=== PATIENT | male | born 1945 | race African-American/Black ===

== ENCOUNTER 2017-12-27 14:44 | Inpatient (IN) ==
--- NOTE | 2017-12-27 17:14 | XR ---
EXAM DATE: 12/27/2017 5:03 PM EDT AGE/SEX: 72 years / Male INDICATIONS: Left foot pain and inflammation, infection in 2nd digit. CLINICAL DATA: This is the patient's initial encounter. Patient reports that signs and symptoms have been present for 4 - 6 days and indicates a pain score of 10/10. MEDICAL/SURGICAL HISTORY: None. . 1st digit amputation. COMPARISON: [facility], XR FOOT (MIN 3 VIEWS), LEFT, 12/14/2015. . FINDINGS: There has been interval transmetatarsal amputation of the first toe and resection of the third toe fr om the distal aspect of the proximal phalanx. The second toe PIP joint is dislocated and there is per meative destructive change involving the middle and distal phalanges as well as erosive change involv ing the second metatarsal head. There is moderate diffuse osteoporosis/osteopenia. Prominent vascular calcifications are noted in the soft tissues. CONCLUSION: Dislocated second toe metatarsophalangeal joint and destructive bony changes involving the second toe phalanges consistent with osteomyelitis. Electronically signed by: Ramana Brush MD 12/27/2017 5:13 PM EDT
--- NOTE | 2017-12-27 17:35 | ED ---
HPI General Chief complaint: Skin/Abscess/Foreign Body Stated complaint: Left Foot Complaint Time Seen by Provider: 12/27/17 16:13 Source: patient Mode of arrival: ambulatory Limitations: no limitations History of Present Illness HPI narrative: 72-year-old male presents to the emergency department with complaint of an open wound to his left foot that has been there since February 2017 after a few of his toes were amputated. Wound care addresses the wound and he was told to come to the ER for evaluation for possible infection to the wound. There is also concern of a palpable bone from one of the small toes that was not amputated. He says he has been taking antibiotics for 1 week but does not know the name of the antibiotic. Denies fever, vomiting. Is complaining of increased pain 1 week. Reports numbness and tingling to the foot. Denies history of diabetes. Says he has bad circulation. Rates pain 10/ 10. Constantly aggravated. No known relieving factors. No treatments tried. No known allergies. Has a primary care provider and does not know the name. Denies significant past medical history. Has no other medical complaints. No other modifying factors or associated signs and symptoms. Related Data Home Medications Medication Instructions Recorded Confirmed Unable to Obtain Home Meds 12/27/17 12/27/17 Allergies Allergy/AdvReac Type Severity Reaction Status Date / Time aspirin AdvReac Mild UPSET Verified 12/27/17 16:45 STOMACH Review of Systems ROS: all other systems reviewed are negative PMFSH History History Provided By: Patient Family History Family History Other Family history normal Social History Social History Substance History: No History of Abuse Second Hand Smoke Exposure: Yes Smoking Status: Current every day smoker Tobacco Type: Cigarettes How Often Do You Have a Drink Containing Alcohol: 4 or more times a week Recent Travel in [facility] within the Last 8 Weeks: No Recent Out of Country Travel within the Last 8 Weeks: No Exam Narrative Exam Narrative: GENERAL: Well-nourished, well-developed elderly, black male patient, in no acute distress SKIN: Warm and dry. Left foot with ulcer type wound to the first, second metatarsal region; there is a palpable bony protrusion to the present toe; no purulent drainage, erythema, edema noted to the foot; sensory intact; 2+ pedal pulse. No lymphangitis. Left lower extremity is supple and non-tense and without erythema or edema. HEAD: Atraumatic. Normocephalic. EYES: Pupils equal and round. No scleral icterus. No injection or drainage. ENT: Mucosa pink and moist. Airway patent. NECK: Trachea midline. CARDIOVASCULAR: Regular rate. RESPIRATORY: No accessory muscle use. GASTROINTESTINAL: Flat. MUSCULOSKELETAL: No obvious deformities. No clubbing. No cyanosis. No edema. NEUROLOGICAL: Awake and alert. Oriented 3. No obvious cranial nerve deficits. Motor grossly within normal limits. Normal speech. PSYCHIATRIC: Appropriate mood and affect; insight and judgment normal. Course Initial Documented Vital Signs Temperature 98.0 F 12/27/17 14:46 Pulse Rate 66 12/27/17 14:46 Respiratory Rate 18 12/27/17 14:46 Blood Pressure 161/72 H 12/27/17 14:46 Pulse Oximetry 100 12/27/17 14:46 Last Documented Vital Signs Temperature 97.6 F 12/28/17 12:00 Pulse Rate 55 L 12/28/17 12:00 Respiratory Rate 18 12/28/17 12:00 Blood Pressure 120/64 12/28/17 12:00 Pulse Oximetry 99 12/28/17 12:00 Medical Decision Making MDM Narrative Medical decision making narrative: 72-year-old male with chronic wound to his left foot. He was sent in by wound care for evaluation for possible infection. CBC, CMP, left foot x-ray, Paden ordered. 174: Left foot x-ray concludes; dislocated second toe metatarsophalangeal joint and destructive bony changes involving the second toe phalanges consistent with osteomyelitis. Vancomycin, Zosyn ordered. Patient will be admitted for further treatment and evaluation. Labs still pending at this time. 183: CBC unremarkable. Potassium 6.0. BUN 28, creatinine 2.13. BUN is consistent with past levels in October 2015. Creatinine has elevated. Kayexalate and EKG ordered. Call placed for patient admission. Report given to Dr. Bullard for patient admission. Medical Screen Exam Complete: Yes Emergency Medical Condition: Yes Differential Diagnosis Differential Diagnosis: Wound infection, osteomyelitis, medical clearance Lab Data Result diagrams: 12/28/17 08:19 12/28/17 08:19 Lab Results 12/27/17 12/27/17 12/27/17 Range/Units 17:55 17:55 17:55 WBC 4.6 (4.0-11.0) th/mm3 RBC 3.29 L (4.50-5.90) mil/mm3 Hgb 11.7 L (13.0-17.0) gm/dL Hct 35.0 L (39.0-51.0) % MCV 106.5 H (80.0-100.0) fL MCH 35.6 H (27.0-34.0) pg MCHC 33.5 (32.0-36.0) % RDW 14.4 (11.6-17.2) % Plt Count 158 (150-450) th/mm3 MPV 8.9 (7.0-11.0) fL Neut % (Auto) 54.7 (16.0-70.0) % Lymph % (Auto) 29.8 (9.0-44.0) % [place] % (Auto) 11.4 H (0.0-8.0) % Eos % (Auto) 2.9 (0.0-4.0) % Baso % (Auto) 1.2 (0.0-2.0) % Neut # (Auto) 2.5 (1.8-7.7) th/mm3 Lymph # (Auto) 1.4 (1.0-4.8) th/mm3 [place] # (Auto) 0.5 (0.0-0.9) th/mm3 Eos # (Auto) 0.1 (0.0-0.4) th/mm3 Baso # (Auto) 0.1 (0.0-0.2) th/mm3 WBC Differential . Differential Comment Auto diff final ESR 83 H (0-20) mm/hr Sodium 137 (136-145) meq/L Potassium 6.0 H (3.5-5.1) meq/L Chloride 108 H (98-107) meq/L Carbon Dioxide 22.0 (21.0-32.0) meq/L Anion Gap 7 (5-15) meq/L BUN 28 H (7-18) mg/dL Creatinine 2.13 H (0.60-1.30) mg/dL Estimated GFR 37 L (>89) mL/min Random Glucose 76 (74-106) mg/dL Calcium 8.7 (8.5-10.1) mg/dL Total Bilirubin 0.4 (0.2-1.0) mg/dL AST 30 (15-37) U/L ALT 24 (12-78) U/L Alkaline Phosphatase 150 H (45-117) U/L Total Protein 8.8 H (6.4-8.2) g/dL Albumin 3.7 (3.4-5.0) g/dL Random Vancomycin Comment 12/28/17 12/28/17 12/28/17 Range/Units 08:19 08:19 08:19 WBC 3.9 L (4.0-11.0) th/mm3 RBC 3.12 L (4.50-5.90) mil/mm3 Hgb 11.2 L (13.0-17.0) gm/dL Hct 33.6 L (39.0-51.0) % MCV 107.5 H (80.0-100.0) fL MCH 35.8 H (27.0-34.0) pg MCHC 33.3 (32.0-36.0) % RDW 14.1 (11.6-17.2) % Plt Count 157 (150-450) th/mm3 MPV 9.2 (7.0-11.0) fL Neut % (Auto) 56.3 (16.0-70.0) % Lymph % (Auto) 22.5 (9.0-44.0) % [place] % (Auto) 13.7 H (0.0-8.0) % Eos % (Auto) 5.8 H (0.0-4.0) % Baso % (Auto) 1.7 (0.0-2.0) % Neut # (Auto) 2.2 (1.8-7.7) th/mm3 Lymph # (Auto) 0.9 L (1.0-4.8) th/mm3 [place] # (Auto) 0.5 (0.0-0.9) th/mm3 Eos # (Auto) 0.2 (0.0-0.4) th/mm3 Baso # (Auto) 0.1 (0.0-0.2) th/mm3 WBC Differential . Differential Comment Auto diff final ESR (0-20) mm/hr Sodium 137 (136-145) meq/L Potassium 5.6 H (3.5-5.1) meq/L Chloride 110 H (98-107) meq/L Carbon Dioxide 20.2 L (21.0-32.0) meq/L Anion Gap 7 (5-15) meq/L BUN 29 H (7-18) mg/dL Creatinine 1.91 H (0.60-1.30) mg/dL Estimated GFR 42 L (>89) mL/min Random Glucose 85 (74-106) mg/dL Calcium 8.3 L (8.5-10.1) mg/dL Total Bilirubin (0.2-1.0) mg/dL AST (15-37) U/L ALT (12-78) U/L Alkaline Phosphatase (45-117) U/L Total Protein (6.4-8.2) g/dL Albumin (3.4-5.0) g/dL Random Vancomycin 9.8 Comment Imaging Data Radiologist's impression: Foot X-Ray 12/27/17 16:35 CONCLUSION: Dislocated second toe metatarsophalangeal joint and destructive bony changes involving the second toe phalanges consistent with osteomyelitis. Discharge Plan Discharge Disposition Patient Disposition: 30 Still Patient Discharge Condition Condition: Stable Discharge Details Diagnosis: Foot osteomyelitis, left, Hyperkalemia Physicians Team ED Provider: Brendan Ballesteros ED Midlevel Provider: Avril Rios Primary Care Provider: NON STAFF,PROVIDER Attending Provider: Jorge Dunbar Other Providers: Cristi Colin ; Lexie Chong Status ED Status: Left Department Discharge Information Discharge Date/Time: 12/27/17 22:45
[2017-12-27] MEDS ORDERED: Vancomycin Inj 1 GM/200 ML PIGGYBACK IV.SIG ONE (17:50)
[2017-12-27] MEDS ORDERED: Piperacil/Tazo 3.375 GM Premix 50 ML IV.SIG ONE (17:50)
[2017-12-27 18:10] LABS: Baso # (Auto) 0.1 th/mm3 (0.0-0.2); Baso % (Auto) 1.2 % (0.0-2.0); Eos # (Auto) 0.1 th/mm3 (0.0-0.4); Eos % (Auto) 2.9 % (0.0-4.0); Hemoglobin 11.7 gm/dL (13.0-17.0); Lymph # (Auto) 1.4 th/mm3 (1.0-4.8); Lymph % (Auto) 29.8 % (9.0-44.0); Mean Corpuscular HGB Conc 33.5 % (32.0-36.0); Mean Corpuscular Hemoglobin 35.6 pg (27.0-34.0); Mean Corpuscular Volume 106.5 fL (80.0-100.0); Mean Platelet Volume 8.9 fL (7.0-11.0); Mono # (Auto) 0.5 th/mm3 (0.0-0.9); Mono % (Auto) 11.4 % (0.0-8.0); Neut # (Auto) 2.5 th/mm3 (1.8-7.7); Neut % (Auto) 54.7 % (16.0-70.0); Platelet Count 158 th/mm3 (150-450); Red Blood Count 3.29 mil/mm3 (4.50-5.90); Red Cell Distribution Width 14.4 % (11.6-17.2); White Blood Count 4.6 th/mm3 (4.0-11.0)
[2017-12-27 18:20] LABS: Alanine Aminotransferase 24 U/L (12-78); Albumin 3.7 g/dL (3.4-5.0); Anion Gap 7 meq/L (5-15); Aspartate Aminotransferase 30 U/L (15-37); Blood Urea Nitrogen 28 mg/dL (7-18); Calcium 8.7 mg/dL (8.5-10.1); Chloride 108 meq/L (98-107); Glomerular Filtration Rate 37 mL/min (>89); Glucose,Random 76 mg/dL (74-106); Sodium 137 meq/L (136-145)
[2017-12-27 18:23] LABS: Alkaline Phosphatase 150 U/L (45-117); Total Protein 8.8 g/dL (6.4-8.2)
[2017-12-27] MEDS ORDERED: Sodium Polystyrene Sulfonate/Sorbitol Liq 15 GM/60 ML UDC PO ONE (18:38)
[2017-12-27] MEDS ORDERED: Vancomycin Consult Pharmacy OTHER PRN (20:45)
[2017-12-27] MEDS ORDERED: Acetaminophen 325 MG Tablet PO PRN (20:46)
[2017-12-27] MEDS ORDERED: Bisacodyl 10 MG Supp RECTAL PRN (20:46)
--- NOTE | 2017-12-27 20:55 | P.HP ---
History of Present Illness Service: [facility] Primary Care Physician: PROVIDER NON STAFF History of Present Illness: 72-year-old male with a past medical history significant for peripheral vascular disease and hyperlipidemia presents to the emergency department for evaluation of a left second toe wound. The patient is status post amputation of multiple toes on both feet and has been seeing wound care. He reports that approximately a week ago the area on his left second toe opened up and has been draining. He reports that he is still able to ambulate however it is painful. He denies any fever/chills. He was sent in by his wound care nurse for the evaluation of possible infection. Toe x-ray concerning for osteomyelitis. No chest pain or shortness of breath. No abdominal pain. No nausea/vomiting/ diarrhea. No lateralizing signs/symptoms. Inpatient Certification: I certify that the inpatient services were ordered in accordance with Medicare regulations governing the order. This includes certification that hospital inpatient services are reasonable and necessary and in the case of services not specified as inpatient-only under 42 CFR 419.22(n), that they are appropriately provided as inpatient services in accordance to with the 2-midnight benchmark under 43 CFR 412.3(e) Estimated Total Length of Stay (Days): 2 Plans for Post Hospital Care: Not yet determined Review of Systems All other systems reviewed negative except as stated in HPI [facility] - History History Provided By: Patient - Medical History Medical History: Medical History (Last Updated 12/27/17 @ 20:50 by Nighat Bullard MD) Amputated toe Bleeding ulcer Blood transfusion, without reported diagnosis High cholesterol History of amputation of toe Peripheral vascular disease - Surgical History Surgical History: Surgical History (Last Updated 12/27/17 @ 18:46 by Edie Laguna) Previous back surgery - Family History Family History: Family History (Last Updated 12/27/17 @ 20:50 by Nighat Bullard MD) Other Family history normal - Tobacco History Second Hand Smoke Exposure: Yes Tobacco Use In Past 30 Days: Yes Smoking Status: Current every day smoker Tobacco Type: Cigarettes - Alcohol History How Often Do You Have a Drink Containing Alcohol: 2 to 4 times a month - Substance Use History Substance History: No History of Abuse - Travel History Recent Travel in the [place] Within the Last 8 Weeks: No Recent Travel Out of the Country Within the Last 8 Weeks: No - Immunization History Tetanus Immunization: <5 Years Hx Influenza Vaccine This Season: Yes Medications and Allergies Active Medications: Active Medications Acetaminophen (Tylenol) 650 mg PO Q4H PRN PRN Reason: Temp > 100.4 Hydrocodone Bitart/Acetaminophen ([place] 5/325) 1 tab PO Q4H PRN PRN Reason: pain 6-10 Al Hydroxide/Mg Hydroxide (Milk Of Magnesia Liq) 30 ml PO Q12H PRN PRN Reason: Mild Constipation Bisacodyl (Dulcolax Supp) 10 mg RECTAL DAILY PRN PRN Reason: SEVERE CONSITIPATION Sodium Chloride (Ns Inj) 1,000 mls @ 100 mls/hr IV.CONT .Q10H ABILIO Lactulose (Lactulose Liq) 30 ml PO DAILY PRN PRN Reason: SEVERE CONSITIPATION Allergies Allergy/AdvReac Type Severity Reaction Status Date / Time aspirin AdvReac Mild UPSET Verified 12/27/17 16:45 STOMACH Home Medications Medication Instructions Recorded Confirmed Type Unable to Obtain Home Meds 12/27/17 12/27/17 History Exam Vital signs: Vital Signs 12/27/17 14:46 12/27/17 18:49 Temperature 98.0 F Pulse Rate 66 78 Respiratory Rate 18 18 Blood Pressure 161/72 H 140/75 Pulse Oximetry 100 98 Intake & Output 12/27/17 12/27/17 12/28/17 06:59 18:59 06:59 Intake Total 50 / 50 Balance 50 / 50 Weight 69.4 kg Intake: IV 50 / 50 Zosyn 3.375 GM Premix 50 ML @ 50 / 50 100 mls/hr IV.SIG ONCE ONE Rx#: [id number] Narrative: Gen.: No acute distress Head: Normocephalic. Atraumatic. EENT: Pupils equal round and reactive to light. Nose without drainage. Airway intact. Throat without injection. Cardiovascular: Regular rate and rhythm. No murmurs, rubs or gallops. Respiratory: Lungs clear to auscultation bilaterally. No wheezes or rhonchi. Abdomen: Soft, nontender, nondistended. No peritoneal signs. Musculoskeletal: No edema. Status post multiple amputations of bilateral toes. Left second toe with ulceration and palpable bony protrusion. Surrounding erythema and edema. 2+ pedal pulse. No drainage observed. Skin: No obvious rashes or erythema. Neuro: Sensory and motor grossly intact. Cranial nerves II through XII grossly intact. Results - Labs CBC & Chem 7: 12/27/17 17:55 12/27/17 17:55 Labs: Laboratory Results - last 24 hr 12/27/17 12/27/17 17:55 17:55 WBC 4.6 RBC 3.29 L Hgb 11.7 L Hct 35.0 L MCV 106.5 H MCH 35.6 H MCHC 33.5 RDW 14.4 Plt Count 158 MPV 8.9 Neut % (Auto) 54.7 Lymph % (Auto) 29.8 [place] % (Auto) 11.4 H Eos % (Auto) 2.9 Baso % (Auto) 1.2 Neut # (Auto) 2.5 Lymph # (Auto) 1.4 [place] # (Auto) 0.5 Eos # (Auto) 0.1 Baso # (Auto) 0.1 WBC Differential . Differential Comment Auto diff final Sodium 137 Potassium 6.0 H Chloride 108 H Carbon Dioxide 22.0 Anion Gap 7 BUN 28 H Creatinine 2.13 H Estimated GFR 37 L Random Glucose 76 Calcium 8.7 Total Bilirubin 0.4 AST 30 ALT 24 Alkaline Phosphatase 150 H Total Protein 8.8 H Albumin 3.7 - Imaging Impressions Foot X-Ray 12/27/17 16:35 CONCLUSION: Dislocated second toe metatarsophalangeal joint and destructive bony changes involving the second toe phalanges consistent with osteomyelitis. Caprini VTE Risk Assessment Caprini VTE Risk Assessment: Moderate/High Risk (score >= 2) Caprini Risk Assessment Model: Point Value = 1 Point Value = 2 Point Value = 3 Point Value = 5 Age 41-60 Minor surgery BMI > 25 kg/m2 Swollen legs Varicose veins or History of unexplained or recurrent spontaneous Oral contraceptives or hormone replacement Sepsis (< 1 month) Serious lung disease, including pneumonia (< 1 month) Abnormal pulmonary function Acute myocardial infarction Congestive heart failure (< 1 month) History of inflammatory bowel disease Medical patient at bed rest Age 61-74 Arthroscopic surgery Major open surgery (> 45 min) Laparoscopic surgery (> 45 min) Malignancy Confined to bed (> 72 hours) Immobilizing plaster cast Central venous access Age >= 75 History of VTE Family history of VTE Factor V Leiden Prothrombin [id number] Lupus anticoagulant Anticardiolipin antibodies Elevated serum homocysteine Heparin-induced thrombocytopenia Other congenital or acquired thrombophilia Stroke (< 1 month) Elective arthroplasty Hip, pelvis, or leg fracture Acute spinal cord injury (< 1 month) Prophylaxis Regimen: Total Risk Factor Score Risk Level Prophylaxis Regimen 0-1 Low Early ambulation 2 Moderate Order ONE of the following: *Sequential Compression Device (SCD) *Heparin 5000 units SQ BID 3-4 Higher Order ONE of the following medications: *Heparin 5000 units SQ TID *Enoxaparin/Lovenox 40 mg SQ daily (WT < 150 kg, CrCl > 30 mL/min) *Enoxaparin/Lovenox 30 mg SQ daily (WT < 150 kg, CrCl > 10-29 mL/min) *Enoxaparin/Lovenox 30 mg SQ BID (WT < 150 kg, CrCl > 30 mL/min) AND/OR *Sequential Compression Device (SCD) 5 or more Highest Order ONE of the following medications: *Heparin 5000 units SQ TID (Preferred with Epidurals) *Enoxaparin/Lovenox 40 mg SQ daily (WT < 150 kg, CrCl > 30 mL/min) *Enoxaparin/Lovenox 30 mg SQ daily (WT < 150 kg, CrCl > 10-29 mL/min) *Enoxaparin/Lovenox 30 mg SQ BID (WT < 150 kg, CrCl > 30 mL/min) AND *Sequential Compression Device (SCD) Assessment and Plan - Plan Assessment/plan: 1. Cellulitis/? Osteomyelitis Foot x-ray shows dislocated second toe metatarsophalangeal joint and destructive bony changes involving the second toe phalanges consistent with osteomyelitis ESR pending Vancomycin/Zosyn Podiatry consulted, appreciate assistance 2. Hyperlipidemia Continue home statin once medications reconciled 3. Hyperkalemia Repeat BMP in a.m. No EKG changes noted 4. Acute kidney injury Creatinine 2.13, most recent creatinine 1.2 in 2016 IV fluid hydration Monitor renal function FEN N.p.o. NS at 100 cc/hour Electrolytes: Monitor and replete as needed Holding pharmacologic anticoagulation for probable operative intervention
[2017-12-27] MEDS: Sod Chloride 0.9% Inj 1,000 ML IV.CONT SCH (22:38)
[2017-12-27] MEDS: Senna/Docusate Sodium 8.6/50 MG Tablet PO SCH (22:38)
[2017-12-27] MEDS: Piperacil/Tazo 2.25 GM Premix 50 ML IV.SIG SCH (23:39)
[2017-12-28] MEDS ORDERED: Piperacil/Tazo 3.375 GM Premix 50 ML IV.SIG SCH
[2017-12-28] MEDS: Piperacil/Tazo 2.25 GM Premix 50 ML IV.SIG SCH ×3 (04:59→17:26)
[2017-12-28] MEDS: Sod Chloride 0.9% Inj 1,000 ML IV.CONT SCH ×2 (09:30→17:27)
[2017-12-28] MEDS: Senna/Docusate Sodium 8.6/50 MG Tablet PO SCH ×2 (09:31→20:30)
[2017-12-28 10:18] LABS: Baso # (Auto) 0.1 th/mm3 (0.0-0.2); Baso % (Auto) 1.7 % (0.0-2.0); Eos # (Auto) 0.2 th/mm3 (0.0-0.4); Eos % (Auto) 5.8 % (0.0-4.0); Hematocrit 33.6 % (39.0-51.0); Hemoglobin 11.2 gm/dL (13.0-17.0); Lymph # (Auto) 0.9 th/mm3 (1.0-4.8); Lymph % (Auto) 22.5 % (9.0-44.0); Mean Corpuscular HGB Conc 33.3 % (32.0-36.0); Mean Corpuscular Hemoglobin 35.8 pg (27.0-34.0); Mean Corpuscular Volume 107.5 fL (80.0-100.0); Mean Platelet Volume 9.2 fL (7.0-11.0); Mono # (Auto) 0.5 th/mm3 (0.0-0.9); Mono % (Auto) 13.7 % (0.0-8.0); Neut # (Auto) 2.2 th/mm3 (1.8-7.7); Neut % (Auto) 56.3 % (16.0-70.0); Platelet Count 157 th/mm3 (150-450); Red Blood Count 3.12 mil/mm3 (4.50-5.90); Red Cell Distribution Width 14.1 % (11.6-17.2); White Blood Count 3.9 th/mm3 (4.0-11.0)
[2017-12-28 10:32] LABS: Calcium 8.3 mg/dL (8.5-10.1); Carbon Dioxide 20.2 meq/L (21.0-32.0); Potassium 5.6 meq/L (3.5-5.1)
[2017-12-28] MEDS ORDERED: Vancomycin Inj 1,000 MG in Sodium Chlor 0.9% Inj 250 ML IV.SIG ONE (13:00)
[2017-12-28] MEDS ORDERED: Sodium Polystyrene Sulfonate/Sorbitol Liq 15 GM/60 ML UDC PO ONE ×2 (15:00→18:00)
--- NOTE | 2017-12-28 17:11 | P.PNIM ---
Subjective Interval history: Patient says he feeling right. Denies any chest pain or shortness of breath. Denies nausea vomiting. Would like to eat. Physical Exam Vital signs: Vital Signs 12/27/17 18:49 12/27/17 19:00 12/28/17 00:34 Temperature 97.3 F L Pulse Rate 78 70 54 L Respiratory Rate 18 15 18 Blood Pressure 140/75 154/74 H 126/73 Pulse Oximetry 98 100 12/28/17 08:00 12/28/17 12:00 12/28/17 16:00 Temperature 97.7 F 97.6 F 97.4 F L Pulse Rate 55 L 55 L 50 L Respiratory Rate 19 18 18 Blood Pressure 119/67 120/64 122/67 Pulse Oximetry 100 99 98 Intake & Output 12/27/17 12/28/17 12/28/17 18:59 06:59 18:59 Intake Total 50 / 50 50 / 50 1550 / 1550 Balance 50 / 50 50 / 50 1550 / 1550 Weight 69.4 kg 68 kg Intake: IV 50 / 50 50 / 50 1550 / 1550 NS Inj 1,000 ML @ 100 mls/hr IV 1000 / 1000 .CONT .Q10H [facility] Rx#:[id number] Zosyn 2.25 GM Premix 50 ML @ 50 / 50 100 / 100 100 mls/hr IV.SIG Q6H [facility] Rx#: [id number] Zosyn 3.375 GM Premix 50 ML @ 50 / 50 100 mls/hr IV.SIG ONCE ONE Rx#: [id number] Vancomycin Inj 1,000 MG In NS 250 / 250 Inj 250 ML @ 250 mls/hr IV.SIG ONCE ONE Rx#:[id number] Other: # Voids 1 Date of Last Bowel Movement 12/27/17 Weight On Admission 69.4 kg Narrative: GENERAL: Patient sitting up in bed. Appears comfortable. SKIN: Warm and dry. HEAD: Normocephalic. EYES: No scleral icterus. No injection or drainage. NECK: Supple, trachea midline. No JVD CARDIOVASCULAR: Regular rate and rhythm without murmurs, gallops, or rubs. RESPIRATORY: Breath sounds equal bilaterally. No accessory muscle use. GASTROINTESTINAL: Abdomen soft, non-tender, nondistended. MUSCULOSKELETAL: No cyanosis, or edema. Left foot dressed. Dressing clean dry and intact. BACK: Nontender without obvious deformity. No CVA tenderness. Results - Labs CBC & Chem 7: 12/28/17 08:19 18 08:19 Laboratory Results - last 24 hr 12/27/17 12/27/17 12/27/17 17:55 17:55 17:55 WBC 4.6 RBC 3.29 L Hgb 11.7 L Hct 35.0 L MCV 106.5 H MCH 35.6 H MCHC 33.5 RDW 14.4 Plt Count 158 MPV 8.9 Neut % (Auto) 54.7 Lymph % (Auto) 29.8 [place] % (Auto) 11.4 H Eos % (Auto) 2.9 Baso % (Auto) 1.2 Neut # (Auto) 2.5 Lymph # (Auto) 1.4 [place] # (Auto) 0.5 Eos # (Auto) 0.1 Baso # (Auto) 0.1 WBC Differential . Differential Comment Auto diff final ESR 83 H Sodium 137 Potassium 6.0 H Chloride 108 H Carbon Dioxide 22.0 Anion Gap 7 BUN 28 H Creatinine 2.13 H Estimated GFR 37 L Random Glucose 76 Calcium 8.7 Total Bilirubin 0.4 AST 30 ALT 24 Alkaline Phosphatase 150 H Total Protein 8.8 H Albumin 3.7 Random Vancomycin 12/28/17 12/28/17 12/28/17 08:19 08:19 08:19 WBC 3.9 L RBC 3.12 L Hgb 11.2 L Hct 33.6 L MCV 107.5 H MCH 35.8 H MCHC 33.3 RDW 14.1 Plt Count 157 MPV 9.2 Neut % (Auto) 56.3 Lymph % (Auto) 22.5 [place] % (Auto) 13.7 H Eos % (Auto) 5.8 H Baso % (Auto) 1.7 Neut # (Auto) 2.2 Lymph # (Auto) 0.9 L [place] # (Auto) 0.5 Eos # (Auto) 0.2 Baso # (Auto) 0.1 WBC Differential . Differential Comment Auto diff final ESR Sodium 137 Potassium 5.6 H Chloride 110 H Carbon Dioxide 20.2 L Anion Gap 7 BUN 29 H Creatinine 1.91 H Estimated GFR 42 L Random Glucose 85 Calcium 8.3 L Total Bilirubin AST ALT Alkaline Phosphatase Total Protein Albumin Random Vancomycin 9.8 Microbiology 12/27/17 16:55 Wound - Foot Gram Stain - Final 12/27/17 16:55 Wound - Foot Wound Culture - Preliminary Heavy growth normal skin eusebio at 24 hours - Imaging Impressions Foot X-Ray 12/27/17 16:35 CONCLUSION: Dislocated second toe metatarsophalangeal joint and destructive bony changes involving the second toe phalanges consistent with osteomyelitis. Assessment and Plan - Plan Assessment/plan: // Cellulitis/? Osteomyelitis Foot x-ray shows dislocated second toe metatarsophalangeal joint and destructive bony changes involving the second toe phalanges consistent with osteomyelitis ESR pending Vancomycin/Zosyn Podiatry consulted, appreciate assistance = 12/28. Continue antibiotics. Follow-up podiatry recommendations. //Hyperlipidemia Continue home statin once medications reconciled //Hyperkalemia Repeat BMP in a.m. No EKG changes noted = 12/28. Repeat potassium 5.6. Give another dose of Kayexalate today. Follow- up tomorrow morning. //Acute kidney injury Creatinine 2.13, most recent creatinine 1.2 in 2016 IV fluid hydration Monitor renal function = Potassium FEN N.p.o. NS at 100 cc/hour Electrolytes: Monitor and replete as needed Holding pharmacologic anticoagulation for probable operative intervention Discharge Planning: Pending podiatry clearance. Hopefully will not need a long course of IV antibiotics.
--- NOTE | 2017-12-28 19:50 | P.CONPOD ---
History of Present Illness Service: Podiatry Consult date: 12/28/17 Reason for Consult: Left 2nd toe infection Primary Care Provider: PROVIDER NON STAFF History of Present Illness: Patient states he has many surgeries for his feet due to infections. Dr Jacobo has managed the Right foot years ago and has done procedures on the Right leg. He had a vascular surgeon in [facility] work on his L leg last year, and says he had it checked recently and was told there was good flow. He has a wound on the left foot and 2nd toe with severe contracture and XR findings consistent with osteomyelitis. He has had previous amputation left foot, as well. Review of Systems All other systems reviewed negative except as stated in HPI [facility] - History History Provided By: Patient - Medical History Medical History: Medical History (Last Reviewed 12/28/17 @ 12:23 by Yuliya De Jesus) Amputated toe Bleeding ulcer Blood transfusion, without reported diagnosis High cholesterol History of amputation of toe Peripheral vascular disease - Surgical History Surgical History: Surgical History (Last Reviewed 12/28/17 @ 12:23 by Yuliya De Jesus) Previous back surgery - Family History Family History: Family History (Last Updated 12/27/17 @ 20:50 by Nighat Bullard MD) Other Family history normal - Tobacco History Second Hand Smoke Exposure: Yes Tobacco Use In Past 30 Days: Yes Smoking Status: Current every day smoker Tobacco Type: Cigarettes - Alcohol History How Often Do You Have a Drink Containing Alcohol: 4 or more times a week - Substance Use History Substance History: No History of Abuse - Travel History Recent Travel in the [place] Within the Last 8 Weeks: No Recent Travel Out of the Country Within the Last 8 Weeks: No - Immunization History Tetanus Immunization: Unsure Hx Influenza Vaccine This Season: No Medications and Allergies Active Medications: Active Medications Acetaminophen (Tylenol) 650 mg PO Q4H PRN PRN Reason: Temp > 100.4 Hydrocodone Bitart/Acetaminophen ([place] 5/325) 1 tab PO Q4H PRN PRN Reason: pain 6-10 Last Admin: 12/28/17 17:26 Dose: 1 tab Al Hydroxide/Mg Hydroxide (Milk Of Magnesia Liq) 30 ml PO Q12H PRN PRN Reason: Mild Constipation Bisacodyl (Dulcolax Supp) 10 mg RECTAL DAILY PRN PRN Reason: SEVERE CONSITIPATION Sodium Chloride (Ns Inj) 1,000 mls @ 100 mls/hr IV.CONT .Q10H [facility] Last Admin: 12/28/17 17:27 Dose: Not Given Piperacillin/Tazobactam/Dextrose (Zosyn 2.25 Gm Premix) 50 mls @ 100 mls/hr IV.SIG Q6H [facility] Last Infusion: 12/28/17 18:03 Dose: Infused Lactulose (Lactulose Liq) 30 ml PO DAILY PRN PRN Reason: SEVERE CONSITIPATION Ondansetron HCl (Zofran Inj) 4 mg IV.PUSH Q6H PRN PRN Reason: NAUSEA OR VOMITING Pharmacy Profile Note (Vancomycin Consult Pharmacy) 1 each OTHER UNSCH PRN PRN Reason: Pharmacy to dose Senna/Docusate Sodium (Pau-Colace) 1 tab PO BID [facility] Last Admin: 12/28/17 09:31 Dose: 1 tab Sennosides (Senokot) 17.2 mg PO Q12H PRN PRN Reason: Moderate Constipation Allergies Allergy/AdvReac Type Severity Reaction Status Date / Time aspirin AdvReac Mild UPSET Verified 12/27/17 16:45 STOMACH Home Medications Medication Instructions Recorded Confirmed Type Unable to Obtain Home Meds 12/27/17 12/27/17 History Physical Exam Vital signs: Vital Signs 12/28/17 00:34 12/28/17 08:00 12/28/17 12:00 Temperature 97.3 F L 97.7 F 97.6 F Pulse Rate 54 L 55 L 55 L Respiratory Rate 18 19 18 Blood Pressure 126/73 119/67 120/64 Pulse Oximetry 100 100 99 12/28/17 16:00 Temperature 97.4 F L Pulse Rate 50 L Respiratory Rate 18 Blood Pressure 122/67 Pulse Oximetry 98 Intake & Output 12/28/17 12/28/17 12/29/17 06:59 18:59 06:59 Intake Total 50 / 50 1600 / 1600 Output Total 800 / 800 Balance 50 / 50 800 / 800 Weight 68 kg Intake: IV 50 / 50 1600 / 1600 NS Inj 1,000 ML @ 100 mls/hr IV 1000 / 1000 .CONT .Q10H [facility] Rx#:[id number] Zosyn 2.25 GM Premix 50 ML @ 50 / 50 150 / 150 100 mls/hr IV.SIG Q6H [facility] Rx#: [id number] Vancomycin Inj 1,000 MG In NS 250 / 250 Inj 250 ML @ 250 mls/hr IV.SIG ONCE ONE Rx#:[id number] Output: Urine 800 / 800 Other: # Voids 1 Date of Last Bowel Movement 12/27/17 # Bowel Movements 1 Weight On Admission 69.4 kg Narrative: Left foot with severe dorsal contracture of 2nd toe at MTP joint with wound to medial aspect of PIP joint down to bone. There is ulceration partial thickness extending proximally along residual medial foot, 2cm x 1cm x 0.2cm depth, 50/50 fibrogranular. No purulence noted. Sensation absent Results - Labs CBC & Chem 7: 12/28/17 08:19 12/28/17 08:19 Laboratory Results - last 24 hr 12/27/17 12/28/17 12/28/17 17:55 08:19 08:19 WBC 3.9 L RBC 3.12 L Hgb 11.2 L Hct 33.6 L MCV 107.5 H MCH 35.8 H MCHC 33.3 RDW 14.1 Plt Count 157 MPV 9.2 Neut % (Auto) 56.3 Lymph % (Auto) 22.5 [place] % (Auto) 13.7 H Eos % (Auto) 5.8 H Baso % (Auto) 1.7 Neut # (Auto) 2.2 Lymph # (Auto) 0.9 L [place] # (Auto) 0.5 Eos # (Auto) 0.2 Baso # (Auto) 0.1 WBC Differential . Differential Comment Auto diff final ESR 83 H Sodium 137 Potassium 5.6 H Chloride 110 H Carbon Dioxide 20.2 L Anion Gap 7 BUN 29 H Creatinine 1.91 H Estimated GFR 42 L Random Glucose 85 Calcium 8.3 L Random Vancomycin 12/28/17 08:19 WBC RBC Hgb Hct MCV MCH MCHC RDW Plt Count MPV Neut % (Auto) Lymph % (Auto) [place] % (Auto) Eos % (Auto) Baso % (Auto) Neut # (Auto) Lymph # (Auto) [place] # (Auto) Eos # (Auto) Baso # (Auto) WBC Differential Differential Comment ESR Sodium Potassium Chloride Carbon Dioxide Anion Gap BUN Creatinine Estimated GFR Random Glucose Calcium Random Vancomycin 9.8 Microbiology 12/27/17 16:55 Wound - Foot Gram Stain - Final 12/27/17 16:55 Wound - Foot Wound Culture - Preliminary Heavy growth normal skin eusebio at 24 hours - Imaging XR L foot shows 2nd toe dislocation at MTP joint and destruction of phalanges consistent with osteomyelitis. Assessment and Plan - Assessment (1) Acute osteomyelitis of left ankle or foot Code(s): M86.172 - Other acute osteomyelitis, left ankle and foot Status: Acute Plan: NPO after midnight TO OR tomorrow for left partial 2nd ray amputation Discussed risks, benefits, complications. Recommended TMA to patient, but he was adamant about keeping left 4th/5th toes and partial 3rd toe. I discussed that he will likely have ulceration on remaining toes in the future and he understood risks. Also explained that if this procedure fails, he will have to undergo TMA next.
[2017-12-29] MEDS: Sod Chloride 0.9% Inj 1,000 ML IV.CONT SCH ×4 (00:29→23:38)
[2017-12-29] MEDS: Piperacil/Tazo 2.25 GM Premix 50 ML IV.SIG SCH ×4 (00:29→19:00)
[2017-12-29] MEDS ORDERED: Chlorhexidine Gluconate 2% 1 Pack (2 Cloths) TOPICAL SCH (01:15)
[2017-12-29] MEDS ORDERED: Sodium Chlor 0.9% Inj 500 ML IV.SIG SCH (02:00)
[2017-12-29 08:11] LABS: Baso # (Auto) 0.1 th/mm3 (0.0-0.2); Baso % (Auto) 1.4 % (0.0-2.0); Eos # (Auto) 0.2 th/mm3 (0.0-0.4); Eos % (Auto) 5.7 % (0.0-4.0); Hematocrit 31.3 % (39.0-51.0); Hemoglobin 10.6 gm/dL (13.0-17.0); Mean Corpuscular HGB Conc 33.9 % (32.0-36.0); Mean Corpuscular Hemoglobin 35.8 pg (27.0-34.0); Mean Corpuscular Volume 105.7 fL (80.0-100.0); Mean Platelet Volume 8.6 fL (7.0-11.0); Mono # (Auto) 0.5 th/mm3 (0.0-0.9); Mono % (Auto) 11.2 % (0.0-8.0); Neut # (Auto) 2.5 th/mm3 (1.8-7.7); Neut % (Auto) 58.7 % (16.0-70.0); Platelet Count 150 th/mm3 (150-450); Red Blood Count 2.96 mil/mm3 (4.50-5.90); Red Cell Distribution Width 13.9 % (11.6-17.2); White Blood Count 4.2 th/mm3 (4.0-11.0)
[2017-12-29 08:31] LABS: Albumin 2.8 g/dL (3.4-5.0); Carbon Dioxide 21.3 meq/L (21.0-32.0); Magnesium 1.7 mg/dL (1.5-2.5); Phosphorus 3.3 mg/dL (2.5-4.9); Vancomycin,Random 12.9 Comment
[2017-12-29] MEDS: Senna/Docusate Sodium 8.6/50 MG Tablet PO SCH ×2 (09:56→21:48)
--- NOTE | 2017-12-29 10:22 | P.PNIM ---
Subjective Interval history: Patient says he is feeling right. Denies any chest pain or shortness of breath. He reports chronic left hand numbness occurring at night, worse in the morning. He says this been going on for many months. Physical Exam Vital signs: Vital Signs 12/28/17 12:00 12/28/17 16:00 12/28/17 20:00 Temperature 97.6 F 97.4 F L 98.7 F Pulse Rate 55 L 50 L 58 L Respiratory Rate 18 18 18 Blood Pressure 120/64 122/67 108/59 L Pulse Oximetry 99 98 99 12/29/17 00:00 12/29/17 08:00 Temperature 98.7 F 97.8 F Pulse Rate 54 L 54 L Respiratory Rate 18 16 Blood Pressure 139/75 120/67 Pulse Oximetry 98 99 Intake & Output 12/28/17 12/29/17 12/29/17 18:59 06:59 18:59 Intake Total 1600 / 1600 100 / 100 Output Total 800 / 800 Balance 800 / 800 100 / 100 Intake: IV 1600 / 1600 100 / 100 NS Inj 1,000 ML @ 100 mls/hr IV 1000 / 1000 .CONT .Q10H [facility] Rx#:[id number] Zosyn 2.25 GM Premix 50 ML @ 150 / 150 100 / 100 100 mls/hr IV.SIG Q6H [facility] Rx#: [id number] Vancomycin Inj 1,000 MG In NS 250 / 250 Inj 250 ML @ 250 mls/hr IV.SIG ONCE ONE Rx#:[id number] Output: Urine 800 / 800 Other: Date of Last Bowel Movement 12/27/17 # Bowel Movements 1 Narrative: GENERAL: Patient sitting up in bed. Appears comfortable. Exam unchanged today. SKIN: Warm and dry. HEAD: Normocephalic. EYES: No scleral icterus. No injection or drainage. NECK: Supple, trachea midline. No JVD CARDIOVASCULAR: Regular rate and rhythm without murmurs, gallops, or rubs. RESPIRATORY: Breath sounds equal bilaterally. No accessory muscle use. GASTROINTESTINAL: Abdomen soft, non-tender, nondistended. MUSCULOSKELETAL: No cyanosis, or edema. Left foot dressed. Dressing clean dry and intact. Strength intact left hand. BACK: Nontender without obvious deformity. No CVA tenderness. Results - Labs CBC & Chem 7: 12/29/17 07:38 12/29/17 07:38 Laboratory Results - last 24 hr 12/28/17 12/28/17 12/29/17 08:19 08:19 07:38 WBC RBC Hgb Hct MCV MCH MCHC RDW Plt Count MPV Neut % (Auto) Lymph % (Auto) [place] % (Auto) Eos % (Auto) Baso % (Auto) Neut # (Auto) Lymph # (Auto) [place] # (Auto) Eos # (Auto) Baso # (Auto) WBC Differential Differential Comment Sodium 137 141 Potassium 5.6 H 5.0 Chloride 110 H 114 H Carbon Dioxide 20.2 L 21.3 Anion Gap 7 6 BUN 29 H 23 H Creatinine 1.91 H 1.64 H Estimated GFR 42 L 50 L Random Glucose 85 86 Calcium 8.3 L 8.0 L Phosphorus 3.3 Magnesium 1.7 Albumin 2.8 L D Random Vancomycin 9.8 12.9 12/29/17 07:38 WBC 4.2 RBC 2.96 L Hgb 10.6 L Hct 31.3 L MCV 105.7 H MCH 35.8 H MCHC 33.9 RDW 13.9 Plt Count 150 MPV 8.6 Neut % (Auto) 58.7 Lymph % (Auto) 23.0 [place] % (Auto) 11.2 H Eos % (Auto) 5.7 H Baso % (Auto) 1.4 Neut # (Auto) 2.5 Lymph # (Auto) 1.0 [place] # (Auto) 0.5 Eos # (Auto) 0.2 Baso # (Auto) 0.1 WBC Differential . Differential Comment Auto diff final Sodium Potassium Chloride Carbon Dioxide Anion Gap BUN Creatinine Estimated GFR Random Glucose Calcium Phosphorus Magnesium Albumin Random Vancomycin Microbiology 12/27/17 16:55 Wound - Foot Gram Stain - Final 12/27/17 16:55 Wound - Foot Wound Culture - Preliminary Heavy growth normal skin eusebio at 24 hours Assessment and Plan - Plan Assessment/plan: // Cellulitis/? Osteomyelitis Foot x-ray shows dislocated second toe metatarsophalangeal joint and destructive bony changes involving the second toe phalanges consistent with osteomyelitis ESR pending Vancomycin/Zosyn Podiatry consulted, appreciate assistance = 12/28. Continue antibiotics. Follow-up podiatry recommendations. = 12/29. For surgery today. Patient podiatry assistance. //Hyperlipidemia Continue home statin once medications reconciled //Hyperkalemia Repeat BMP in a.m. No EKG changes noted = 12/28. Repeat potassium 5.6. Give another dose of Kayexalate today. Follow- up tomorrow morning. = 12/29 potassium 5.0. Improved. Continue to monitor. //Acute kidney injury Creatinine 2.13, most recent creatinine 1.2 in 2015 IV fluid hydration Monitor renal function = 12/29 potassium 5.0 improved. Creatinine 1.6, improved. Continue to monitor. //Left hand numbness. Suspect patient has ulnar radiculopathy recommend pillow under his elbow while sleeping. FEN N.p.o. NS at 100 cc/hour Electrolytes: Monitor and replete as needed Holding pharmacologic anticoagulation for probable operative intervention Discharge Planning: Pending podiatry clearance. Hopefully will not need a long course of IV antibiotics.
[2017-12-29] MEDS ORDERED: Glycopyrrolate 0.2 MG/ML Vial IV.PUSH ONE (12:00)
[2017-12-29] MEDS ORDERED: Vancomycin Inj 1,000 MG in Sodium Chlor 0.9% Inj 250 ML IV.SIG ONE (12:00)
--- NOTE | 2017-12-29 13:59 | ECG ---
Date Performed: 12/29/2017 Time Performed: 07:49:23 PTAGE: 72 years EKG: SINUS BRADYCARDIA MINIMAL VOLTAGE CRITERIA FOR LVH, CONSIDER NORMAL VARIANT BORDERLINE ECG Compared to PREVIOUS TRACING sinus rate is slower PREVIOUS TRACIN10/05/2015 21.59 DOCTOR: Mark Bailey Interpretating Date/Time 12/29/2017 13:58:56
[2017-12-29] MEDS ORDERED: Ketamine Inj 50 MG/5 ML Syringe IV.PUSH ONE (16:12)
[2017-12-29] MEDS ORDERED: Bupivacaine PF 0.25% Inj 30 ML Vial ONE (16:57)
[2017-12-29] MEDS ORDERED: *Labetalol HCl Inj 100 MG/20 ML Vial PERIprocedural Use ONLY IV.PUSH ONE (17:42)
--- NOTE | 2017-12-29 19:10 | P.PNPOD ---
Physical Exam Vital signs: Vital Signs 12/28/17 20:00 12/29/17 00:00 12/29/17 08:00 Temperature 98.7 F 98.7 F 97.8 F Pulse Rate 58 L 54 L 54 L Respiratory Rate 18 18 16 Blood Pressure 108/59 L 139/75 120/67 Pulse Oximetry 99 98 99 12/29/17 12:00 12/29/17 17:35 12/29/17 17:45 Temperature 97.8 F 97.6 F Pulse Rate 71 67 69 Respiratory Rate 16 20 16 Blood Pressure 132/72 183/94 H 177/97 H Pulse Oximetry 97 100 12/29/17 18:00 12/29/17 18:15 12/29/17 18:30 Temperature Pulse Rate 68 64 64 Respiratory Rate 17 17 17 Blood Pressure 178/93 H 173/97 H 173/97 H Pulse Oximetry 100 100 12/29/17 18:45 Temperature Pulse Rate 60 Respiratory Rate 18 Blood Pressure 174/93 H Pulse Oximetry 100 Intake & Output 12/29/17 12/29/17 12/30/17 06:59 18:59 06:59 Intake Total 100 / 100 50 / 50 Output Total 600 / 600 Balance 100 / 100 -550 / -550 Intake: IV 100 / 100 50 / 50 Zosyn 2.25 GM Premix 50 ML @ 100 / 100 50 / 50 100 mls/hr IV.SIG Q6H [facility] Rx#: [id number] Oral 0 / 0 Output: Urine 600 / 600 Medications and Allergies Active Medications: Active Medications Acetaminophen (Tylenol) 650 mg PO Q4H PRN PRN Reason: Temp > 100.4 Hydrocodone Bitart/Acetaminophen ([place]loe 5/325) 1 tab PO Q4H PRN PRN Reason: pain 6-10 Last Admin: 12/29/17 09:55 Dose: 1 tab Al Hydroxide/Mg Hydroxide (Milk Of Magnesia Liq) 30 ml PO Q12H PRN PRN Reason: Mild Constipation Bisacodyl (Dulcolax Supp) 10 mg RECTAL DAILY PRN PRN Reason: SEVERE CONSITIPATION Sodium Chloride (Ns Inj) 1,000 mls @ 100 mls/hr IV.CONT .Q10H [facility] Last Admin: 12/29/17 13:16 Dose: 100 mls/hr Piperacillin/Tazobactam/Dextrose (Zosyn 2.25 Gm Premix) 50 mls @ 100 mls/hr IV.SIG Q6H [facility] Last Infusion: 12/29/17 14:33 Dose: Infused Lactulose (Lactulose Liq) 30 ml PO DAILY PRN PRN Reason: SEVERE CONSITIPATION Miscellaneous Information ([facility] Nursing Information) 1 each OTHER UNSCH PRN PRN Reason: SEE LABEL COMMENTS Stop: 12/30/17 18:22 Ondansetron HCl (Zofran Inj) 4 mg IV.PUSH Q6H PRN PRN Reason: NAUSEA OR VOMITING Pharmacy Profile Note (Vancomycin Consult Pharmacy) 1 each OTHER UNSCH PRN PRN Reason: Pharmacy to dose Senna/Docusate Sodium (Pau-Colace) 1 tab PO BID [facility] Last Admin: 12/29/17 09:56 Dose: Not Given Sennosides (Senokot) 17.2 mg PO Q12H PRN PRN Reason: Moderate Constipation Allergies Allergy/AdvReac Type Severity Reaction Status Date / Time aspirin AdvReac Mild UPSET Verified 12/27/17 16:45 STOMACH Home Medications Medication Instructions Recorded Confirmed Type Unable to Obtain Home Meds 12/27/17 12/27/17 History Results - Labs CBC & Chem 7: 12/29/17 07:38 12/29/17 07:38 Laboratory Results - last 24 hr 12/29/17 12/29/17 07:38 07:38 WBC 4.2 RBC 2.96 L Hgb 10.6 L Hct 31.3 L MCV 105.7 H MCH 35.8 H MCHC 33.9 RDW 13.9 Plt Count 150 MPV 8.6 Neut % (Auto) 58.7 Lymph % (Auto) 23.0 [place] % (Auto) 11.2 H Eos % (Auto) 5.7 H Baso % (Auto) 1.4 Neut # (Auto) 2.5 Lymph # (Auto) 1.0 [place] # (Auto) 0.5 Eos # (Auto) 0.2 Baso # (Auto) 0.1 WBC Differential . Differential Comment Auto diff final Sodium 141 Potassium 5.0 Chloride 114 H Carbon Dioxide 21.3 Anion Gap 6 BUN 23 H Creatinine 1.64 H Estimated GFR 50 L Random Glucose 86 Calcium 8.0 L Phosphorus 3.3 Magnesium 1.7 Albumin 2.8 L D Random Vancomycin 12.9 Microbiology 12/27/17 16:55 Wound - Foot Gram Stain - Final 12/27/17 16:55 Wound - Foot Wound Culture - Final Heavy growth normal skin eusebio No anaerobes isolated Assessment and Plan - Assessment (1) Acute osteomyelitis of left ankle or foot Code(s): M86.172 - Other acute osteomyelitis, left ankle and foot Status: Acute Plan: Attempted OR earlier and was delayed due to the following: I discovered consent was written incorrectly by floor nurse during preoperative time-out procedure. Patient was under anesthesia (Gas only, no narcotics) when this was discovered. Case was delayed and patient sent to PACU to recover until alert and oriented x 1 hour per anesthesia standard. I had originally planned to amend previous consent and have patient initial, but left that incorrect consent in chart. When patient was deemed alert and oriented x 3 by anesthesia, a new consent was written, surgery discussed again with patient, consent witnessed by PACU nurse. Patient will be taken to OR for left partial 2nd ray amputation shortly. Discussed this case with Ru Martinez (safety and occupational health manager), who gave the OK to proceed. Also discussed with Que (7th floor scrubber), who will handle the situation of not transcribing consent order properly with nurse Murray from last evening ( Sunday).
--- NOTE | 2017-12-29 20:43 | P.BOP ---
- Preoperative Diagnosis (1) Acute osteomyelitis of left ankle or foot - Postoperative Diagnosis (1) Acute osteomyelitis of left ankle or foot Date of procedure: 12/29/17 Procedure: Left foot partial 2nd ray amputation Wound noted to medial aspect of foot and wound excised, and incision continued around 2nd toe. 2nd toe was dislocated medially at MTP joint level with wound to PIPJ aspect down to level of bone. 2nd metatarsal transected with saw proximal shaft and sent with toe as partial 2nd ray to pathology. Culture taken, followed by irrigation and primary closure with 2-0 nylon. Dressing with xeroform, 4x4s, abd x 2, cast padding, alison to left foot. Nonweightbearing left foot Wear surgical shoe when up and about. Remove shoe when at rest. No further surgery anticipated. Follow up 1 week after discharge in outpatient clinic. No tourniquet utilized. Healthy bleeding viable tissue noted upon closure. 10mL 0.5% marcaine plain local block Anesthesia: GETA, local (10mL 0.5% marcaine plain) Surgeon: Lexie Chong DPM [employer] Repairer: staff Estimated blood loss (mL): 20 Pathology: other (1. partial 2nd ray left foot. 2. culture lef tfoot) Condition: stable Disposition: PACU
--- NOTE | 2017-12-29 21:15 | XR ---
EXAM DATE: 12/29/2017 9:04 PM EDT AGE/SEX: 72 years / Male INDICATIONS: Post-op CLINICAL DATA: This is the patient's subsequent encounter. Patient reports that signs and symptoms h ave been present for 2 days and indicates a pain score of Nonresponsive. MEDICAL/SURGICAL HISTORY: . Osteomyelitis. Kidney failure. Hyperkalemia. . 1st digit amputatio n. COMPARISON: [facility] [place] 3V, 12/27/2017. . FINDINGS: Postsurgical changes following forefoot amputation are noted. The proximal phalanx of the third toe h as been partially resected. The fourth toe and part of the fourth metatarsal have been resected. Further resection of the fifth metatarsal is noted. Significant soft tissue swelling is seen over the amputated site. CONCLUSION: Forefoot amputation as described. Electronically signed by: Yasir Parikh MD 12/29/2017 9:14 PM EDT
[2017-12-29] MEDS ORDERED: fentaNYL Citrate Inj 100 MCG/2 ML Ampul ONE (23:55)
[2017-12-30] MEDS: Piperacil/Tazo 2.25 GM Premix 50 ML IV.SIG SCH ×3 (00:43→11:43)
[2017-12-30 06:26] LABS: Baso # (Auto) 0.1 th/mm3 (0.0-0.2); Baso % (Auto) 0.9 % (0.0-2.0); Eos # (Auto) 0.2 th/mm3 (0.0-0.4); Eos % (Auto) 3.4 % (0.0-4.0); Hematocrit 29.2 % (39.0-51.0); Hemoglobin 9.7 gm/dL (13.0-17.0); Lymph # (Auto) 1.4 th/mm3 (1.0-4.8); Lymph % (Auto) 22.1 % (9.0-44.0); Mean Corpuscular HGB Conc 33.3 % (32.0-36.0); Mean Corpuscular Hemoglobin 35.7 pg (27.0-34.0); Mean Corpuscular Volume 107.1 fL (80.0-100.0); Mean Platelet Volume 8.1 fL (7.0-11.0); Mono # (Auto) 0.5 th/mm3 (0.0-0.9); Mono % (Auto) 8.9 % (0.0-8.0); Neut % (Auto) 64.7 % (16.0-70.0); Platelet Count 145 th/mm3 (150-450); Red Blood Count 2.72 mil/mm3 (4.50-5.90); Red Cell Distribution Width 13.9 % (11.6-17.2); White Blood Count 6.2 th/mm3 (4.0-11.0)
[2017-12-30 07:16] LABS: Albumin 2.7 g/dL (3.4-5.0); Calcium 7.7 mg/dL (8.5-10.1); Carbon Dioxide 20.9 meq/L (21.0-32.0); Magnesium 1.6 mg/dL (1.5-2.5); Potassium 4.4 meq/L (3.5-5.1)
[2017-12-30 07:17] LABS: Phosphorus 3.7 mg/dL (2.5-4.9)
[2017-12-30 07:19] LABS: Vancomycin,Random 12.3 Comment
[2017-12-30] MEDS ORDERED: Naloxone Inj 0.4 MG/ML Vial IV.PUSH PRN (10:38)
[2017-12-30] MEDS ORDERED: Morphine Inj 4 MG/ML Vial IV.PUSH PRN (10:38)
[2017-12-30] MEDS ORDERED: Vancomycin Inj 1,250 MG in Sodium Chlor 0.9% Inj 250 ML IV.SIG ONE (11:00)
[2017-12-30] MEDS: Senna/Docusate Sodium 8.6/50 MG Tablet PO SCH (11:44)
--- NOTE | 2017-12-30 13:36 | P.PNPOD ---
Subjective Interval history: s/p left partial 2nd ray amputation 12/29/17 Dr Chong Physical Exam Vital signs: Vital Signs 12/29/17 17:35 12/29/17 17:45 12/29/17 18:00 Temperature 97.6 F Pulse Rate 67 69 68 Respiratory Rate 20 16 17 Blood Pressure 183/94 H 177/97 H 178/93 H Pulse Oximetry 100 12/29/17 18:15 12/29/17 18:30 12/29/17 18:45 Temperature Pulse Rate 64 64 60 Respiratory Rate 17 17 18 Blood Pressure 173/97 H 173/97 H 174/93 H Pulse Oximetry 100 100 100 12/29/17 20:00 12/29/17 20:40 12/29/17 20:45 Temperature 98.0 F 97.9 F Pulse Rate 57 L 76 78 Respiratory Rate 16 15 14 Blood Pressure 140/81 111/83 113/85 Pulse Oximetry 100 100 100 12/29/17 21:00 12/29/17 21:15 12/30/17 00:00 Temperature 98.1 F 98.3 F Pulse Rate 71 65 57 L Respiratory Rate 18 16 16 Blood Pressure 122/79 130/75 99/58 L Pulse Oximetry 100 100 99 12/30/17 04:00 12/30/17 08:00 12/30/17 12:00 Temperature 98.6 F 97.8 F 97.9 F Pulse Rate 50 L 67 55 L Respiratory Rate 16 12 14 Blood Pressure 128/67 120/71 139/70 Pulse Oximetry 99 99 98 Intake & Output 12/29/17 12/30/17 12/30/17 18:59 06:59 18:59 Intake Total 50 / 50 1400 / 1400 Output Total 600 / 600 580 / 580 Balance -550 / -550 820 / 820 Weight 74.5 kg Intake: IV 50 / 50 1100 / 1100 NS Inj 1,000 ML @ 100 mls/hr IV 1000 / 1000 .CONT .Q10H [facility] Rx#:[id number] Zosyn 2.25 GM Premix 50 ML @ 50 / 50 100 / 100 100 mls/hr IV.SIG Q6H [facility] Rx#: [id number] Oral 0 / 0 Anesthesia Amount 300 / 300 Output: Urine 600 / 600 550 / 550 Estimated Blood Loss 30 / 30 Other: Date of Last Bowel Movement 12/29/17 Narrative: L foot bandage clean, dry, intact. Patient reports pain controlled. Medications and Allergies Active Medications: Active Medications Acetaminophen (Tylenol) 650 mg PO Q4H PRN PRN Reason: Temp > 100.4 Hydrocodone Bitart/Acetaminophen ([place] 10/325) 1 tab PO Q4H PRN PRN Reason: PAIN SCALE 6 TO 10 Last Admin: 12/30/17 11:45 Dose: 1 tab Al Hydroxide/Mg Hydroxide (Milk Of Magnesia Liq) 30 ml PO Q12H PRN PRN Reason: Mild Constipation Bisacodyl (Dulcolax Supp) 10 mg RECTAL DAILY PRN PRN Reason: SEVERE CONSITIPATION Sodium Chloride (Ns Inj) 1,000 mls @ 100 mls/hr IV.CONT .Q10H [facility] Last Admin: 12/29/17 23:38 Dose: 100 mls/hr Piperacillin/Tazobactam/Dextrose (Zosyn 2.25 Gm Premix) 50 mls @ 100 mls/hr IV.SIG Q6H [facility] Last Admin: 12/30/17 11:43 Dose: 100 mls/hr Lactulose (Lactulose Liq) 30 ml PO DAILY PRN PRN Reason: SEVERE CONSITIPATION Miscellaneous Information (Misc Nursing Information) 1 each OTHER UNSCH PRN PRN Reason: SEE LABEL COMMENTS Stop: 12/30/17 18:22 Miscellaneous Information ([facility] Nursing Information) 1 each OTHER UNSCH PRN PRN Reason: SEE LABEL COMMENTS Stop: 12/30/17 21:01 Morphine Sulfate (Morphine Inj) 2 mg IV.PUSH Q3H PRN PRN Reason: BREAKTHROUGH PAIN Naloxone HCl (Narcan Inj) 0.4 mg IV.PUSH UNSCH PRN PRN Reason: SEE LABEL COMMENTS Ondansetron HCl (Zofran Inj) 4 mg IV.PUSH Q6H PRN PRN Reason: NAUSEA OR VOMITING Pharmacy Profile Note (Vancomycin Consult Pharmacy) 1 each OTHER UNSCH PRN PRN Reason: Pharmacy to dose Senna/Docusate Sodium (Pau-Colace) 1 tab PO BID [facility] Last Admin: 12/30/17 11:44 Dose: Not Given Sennosides (Senokot) 17.2 mg PO Q12H PRN PRN Reason: Moderate Constipation Allergies Allergy/AdvReac Type Severity Reaction Status Date / Time aspirin AdvReac Mild UPSET Verified 12/27/17 16:45 STOMACH Home Medications Medication Instructions Recorded Confirmed Type Unable to Obtain Home Meds 12/27/17 12/27/17 History Results - Labs CBC & Chem 7: 12/30/17 05:50 12/30/17 05:50 Laboratory Results - last 24 hr 12/30/17 12/30/17 05:50 05:50 WBC 6.2 RBC 2.72 L Hgb 9.7 L Hct 29.2 L MCV 107.1 H MCH 35.7 H MCHC 33.3 RDW 13.9 Plt Count 145 L MPV 8.1 Neut % (Auto) 64.7 Lymph % (Auto) 22.1 [place] % (Auto) 8.9 H Eos % (Auto) 3.4 Baso % (Auto) 0.9 Neut # (Auto) 4.0 Lymph # (Auto) 1.4 [place] # (Auto) 0.5 Eos # (Auto) 0.2 Baso # (Auto) 0.1 WBC Differential . Differential Comment Auto diff final Sodium 141 Potassium 4.4 Chloride 112 H Carbon Dioxide 20.9 L Anion Gap 8 BUN 17 Creatinine 1.57 H Estimated GFR 53 L Random Glucose 83 Calcium 7.7 L Phosphorus 3.7 Magnesium 1.6 Albumin 2.7 L Random Vancomycin 12.3 Microbiology 12/27/17 16:55 Wound - Foot Gram Stain - Final 12/27/17 16:55 Wound - Foot Wound Culture - Final Heavy growth normal skin eusebio No anaerobes isolated - Imaging Impressions Foot X-Ray 12/29/17 00:00 CONCLUSION: Forefoot amputation as described. Assessment and Plan - Assessment (1) Acute osteomyelitis of left ankle or foot Code(s): M86.172 - Other acute osteomyelitis, left ankle and foot Status: Acute Plan: Ok to discharge when cleared by PT to be able to comply with nonweightbearing left lower extremity. DC on broad spectrum oral antibiotics x 2 weeks Follow up in clinic in 1 week for dressing change. Keep dressing clean, dry, intact.
--- NOTE | 2017-12-30 14:29 | P.PNIM ---
Subjective Interval history: Patient reports that pain is controlled. Denies any chest pain or shortness of breath. Physical Exam Vital signs: Vital Signs 12/29/17 17:35 12/29/17 17:45 12/29/17 18:00 Temperature 97.6 F Pulse Rate 67 69 68 Respiratory Rate 20 16 17 Blood Pressure 183/94 H 177/97 H 178/93 H Pulse Oximetry 100 12/29/17 18:15 12/29/17 18:30 12/29/17 18:45 Temperature Pulse Rate 64 64 60 Respiratory Rate 17 17 18 Blood Pressure 173/97 H 173/97 H 174/93 H Pulse Oximetry 100 100 100 12/29/17 20:00 12/29/17 20:40 12/29/17 20:45 Temperature 98.0 F 97.9 F Pulse Rate 57 L 76 78 Respiratory Rate 16 15 14 Blood Pressure 140/81 111/83 113/85 Pulse Oximetry 100 100 100 12/29/17 21:00 12/29/17 21:15 12/30/17 00:00 Temperature 98.1 F 98.3 F Pulse Rate 71 65 57 L Respiratory Rate 18 16 16 Blood Pressure 122/79 130/75 99/58 L Pulse Oximetry 100 100 99 12/30/17 04:00 12/30/17 08:00 12/30/17 12:00 Temperature 98.6 F 97.8 F 97.9 F Pulse Rate 50 L 67 55 L Respiratory Rate 16 12 14 Blood Pressure 128/67 120/71 139/70 Pulse Oximetry 99 99 98 Intake & Output 12/29/17 12/30/17 12/30/17 18:59 06:59 18:59 Intake Total 50 / 50 1400 / 1400 Output Total 600 / 600 580 / 580 Balance -550 / -550 820 / 820 Weight 74.5 kg Intake: IV 50 / 50 1100 / 1100 NS Inj 1,000 ML @ 100 mls/hr IV 1000 / 1000 .CONT .Q10H ABILIO Rx#:[id number] Zosyn 2.25 GM Premix 50 ML @ 50 / 50 100 / 100 100 mls/hr IV.SIG Q6H ABILIO Rx#: [id number] Oral 0 / 0 Anesthesia Amount 300 / 300 Output: Urine 600 / 600 550 / 550 Estimated Blood Loss 30 / 30 Other: Date of Last Bowel Movement 12/29/17 Narrative: GENERAL: Patient sitting up in bed. Appears comfortable. SKIN: Warm and dry. HEAD: Normocephalic. EYES: No scleral icterus. No injection or drainage. NECK: Supple, trachea midline. No JVD CARDIOVASCULAR: Regular rate and rhythm without murmurs, gallops, or rubs. RESPIRATORY: Breath sounds equal bilaterally. No accessory muscle use. GASTROINTESTINAL: Abdomen soft, non-tender, nondistended. MUSCULOSKELETAL: No cyanosis, or edema. Left foot dressed. Dressing clean dry and intact. BACK: Nontender without obvious deformity. No CVA tenderness. Results - Labs CBC & Chem 7: 12/30/17 05:50 12/30/17 05:50 Laboratory Results - last 24 hr 12/30/17 12/30/17 05:50 05:50 WBC 6.2 RBC 2.72 L Hgb 9.7 L Hct 29.2 L MCV 107.1 H MCH 35.7 H MCHC 33.3 RDW 13.9 Plt Count 145 L MPV 8.1 Neut % (Auto) 64.7 Lymph % (Auto) 22.1 Faulk % (Auto) 8.9 H Eos % (Auto) 3.4 Baso % (Auto) 0.9 Neut # (Auto) 4.0 Lymph # (Auto) 1.4 Faulk # (Auto) 0.5 Eos # (Auto) 0.2 Baso # (Auto) 0.1 WBC Differential . Differential Comment Auto diff final Sodium 141 Potassium 4.4 Chloride 112 H Carbon Dioxide 20.9 L Anion Gap 8 BUN 17 Creatinine 1.57 H Estimated GFR 53 L Random Glucose 83 Calcium 7.7 L Phosphorus 3.7 Magnesium 1.6 Albumin 2.7 L Random Vancomycin 12.3 Microbiology 12/27/17 16:55 Wound - Foot Gram Stain - Final 12/27/17 16:55 Wound - Foot Wound Culture - Final Heavy growth normal skin eusebio No anaerobes isolated - Imaging Impressions Foot X-Ray 12/29/17 00:00 CONCLUSION: Forefoot amputation as described. Assessment and Plan - Plan Assessment/plan: // Cellulitis/? Osteomyelitis Foot x-ray shows dislocated second toe metatarsophalangeal joint and destructive bony changes involving the second toe phalanges consistent with osteomyelitis ESR pending Vancomycin/Zosyn Podiatry consulted, appreciate assistance = 12/28. Continue antibiotics. Follow-up podiatry recommendations. = 12/29. For surgery today. Patient podiatry assistance. = 12/30. Is nonweightbearing left foot. Patient cleared for discharge by podiatry when can comply with nonweightbearing left foot, on broad-spectrum p.o. antibiotics x 2 wks. = Follow-up PT recommendations. //Hyperlipidemia Continue home statin once medications reconciled //Hyperkalemia Repeat BMP in a.m. No EKG changes noted = 12/28. Repeat potassium 5.6. Give another dose of Kayexalate today. Follow- up tomorrow morning. = 12/29 potassium 5.0. Improved. Continue to monitor. = 12/30. Potassium 4.4. Appears resolved. //Acute kidney injury Creatinine 2.13, most recent creatinine 1.2 in 2015 IV fluid hydration Monitor renal function = 12/29 potassium 5.0 improved. Creatinine 1.6, improved. Continue to monitor. = 12/30. Creatinine 1.57 improved. //Left hand numbness. Suspect patient has ulnar radiculopathy recommend pillow under his elbow while sleeping. FEN N.p.o. NS at 100 cc/hour Electrolytes: Monitor and replete as needed Holding pharmacologic anticoagulation for probable operative intervention Discharge Planning: Pending podiatry clearance. Hopefully will not need a long course of IV antibiotics.
--- NOTE | 2017-12-30 15:51 | P.DS ---
Date of admission: 12/27/17 19:02 Primary care physician: PROVIDER NON STAFF Brief History from admission: 72-year-old male with a past medical history significant for peripheral vascular disease and hyperlipidemia presents to the emergency department for evaluation of a left second toe wound. The patient is status post amputation of multiple toes on both feet and has been seeing wound care. He reports that approximately a week ago the area on his left second toe opened up and has been draining. He reports that he is still able to ambulate however it is painful. He denies any fever/chills. He was sent in by his wound care nurse for the evaluation of possible infection. Toe x-ray concerning for osteomyelitis. No chest pain or shortness of breath. No abdominal pain. No nausea/vomiting/ diarrhea. No lateralizing signs/symptoms. DS: Medications - Discharge Medications Prescriptions: amoxicillin-pot clavulanate [Augmentin] 1 tab PO Q12H #28 tab hydrocodone-acetaminophen [[place]] 1 tab PO Q4H PRN #42 tab PRN Reason: Pain DS: Summary Hospital Course: Foot x-ray on admission shows osteomyelitis of the left second foot. Please see report. Dietary was consulted, patient underwent left second ray amputation. Patient cleared by podiatry for discharge with nonweightbearing left foot, to continue on 14 days of by mouth antibiotics. Follow-up with podiatry as outpatient within 1 week. For problem based summary from most recent progress note, please see below. Assessment/plan: // Cellulitis/? Osteomyelitis Foot x-ray shows dislocated second toe metatarsophalangeal joint and destructive bony changes involving the second toe phalanges consistent with osteomyelitis ESR pending Vancomycin/Zosyn Podiatry consulted, appreciate assistance = 12/28. Continue antibiotics. Follow-up podiatry recommendations. = 12/29. For surgery today. Patient podiatry assistance. = 12/30. Is nonweightbearing left foot. Patient cleared for discharge by podiatry when can comply with nonweightbearing left foot, on broad-spectrum p.o. antibiotics x 2 wks. = Follow-up PT recommendations. //Hyperlipidemia Continue home statin once medications reconciled //Hyperkalemia Repeat BMP in a.m. No EKG changes noted = 12/28. Repeat potassium 5.6. Give another dose of Kayexalate today. Follow- up tomorrow morning. = 12/29 potassium 5.0. Improved. Continue to monitor. = 12/30. Potassium 4.4. Appears resolved. //Acute kidney injury Creatinine 2.13, most recent creatinine 1.2 in 2016 IV fluid hydration Monitor renal function = 12/29 potassium 5.0 improved. Creatinine 1.6, improved. Continue to monitor. = 12/30. Creatinine 1.57 improved. //Left hand numbness. Suspect patient has ulnar radiculopathy recommend pillow under his elbow while sleeping. FEN N.p.o. NS at 100 cc/hour Electrolytes: Monitor and replete as needed Holding pharmacologic anticoagulation for probable operative intervention Discharge Planning: Pending podiatry clearance. Hopefully will not need a long course of IV antibiotics. - Time Spent with Patient Total time spent providing and/or coordinating discharge services: Greater than 30 minutes - Quality: VTE Deep Vein Thrombosis/Pulmonary Embolism Present on Admission: No Exam Vital signs: Vital Signs 12/29/17 17:35 12/29/17 17:45 12/29/17 18:00 Temperature 97.6 F Pulse Rate 67 69 68 Respiratory Rate 20 16 17 Blood Pressure 183/94 H 177/97 H 178/93 H Pulse Oximetry 100 12/29/17 18:15 12/29/17 18:30 12/29/17 18:45 Temperature Pulse Rate 64 64 60 Respiratory Rate 17 17 18 Blood Pressure 173/97 H 173/97 H 174/93 H Pulse Oximetry 100 100 100 12/29/17 20:00 12/29/17 20:40 12/29/17 20:45 Temperature 98.0 F 97.9 F Pulse Rate 57 L 76 78 Respiratory Rate 16 15 14 Blood Pressure 140/81 111/83 113/85 Pulse Oximetry 100 100 100 12/29/17 21:00 12/29/17 21:15 12/30/17 00:00 Temperature 98.1 F 98.3 F Pulse Rate 71 65 57 L Respiratory Rate 18 16 16 Blood Pressure 122/79 130/75 99/58 L Pulse Oximetry 100 100 99 12/30/17 04:00 12/30/17 08:00 12/30/17 12:00 Temperature 98.6 F 97.8 F 97.9 F Pulse Rate 50 L 67 55 L Respiratory Rate 16 12 14 Blood Pressure 128/67 120/71 139/70 Pulse Oximetry 99 99 98 Intake & Output 12/29/17 12/30/17 12/30/17 18:59 06:59 18:59 Intake Total 50 / 50 1400 / 1400 Output Total 600 / 600 580 / 580 Balance -550 / -550 820 / 820 Weight 74.5 kg Intake: IV 50 / 50 1100 / 1100 NS Inj 1,000 ML @ 100 mls/hr IV 1000 / 1000 .CONT .Q10H ABILIO Rx#:[id number] Zosyn 2.25 GM Premix 50 ML @ 50 / 50 100 / 100 100 mls/hr IV.SIG Q6H ABILIO Rx#: [id number] Oral 0 / 0 Anesthesia Amount 300 / 300 Output: Urine 600 / 600 550 / 550 Estimated Blood Loss Other: Date of Last Bowel Movement 12/29/17 Results Procedures completed during hospitalization: Left second ray amputation. Performed on 12/29. Please see report. Pending studies at discharge: Pending at discharge 12/30/17 Surgical [PTH] Routine Labs on day of discharge: Labs from last 24 hours 12/30/17 12/30/17 05:50 05:50 WBC 6.2 RBC 2.72 L Hgb 9.7 L Hct 29.2 L MCV 107.1 H MCH 35.7 H MCHC 33.3 RDW 13.9 Plt Count 145 L MPV 8.1 Neut % (Auto) 64.7 Lymph % (Auto) 22.1 Carbon % (Auto) 8.9 H Eos % (Auto) 3.4 Baso % (Auto) 0.9 Neut # (Auto) 4.0 Lymph # (Auto) 1.4 Carbon # (Auto) 0.5 Eos # (Auto) 0.2 Baso # (Auto) 0.1 WBC Differential . Differential Comment Auto diff final Sodium 141 Potassium 4.4 Chloride 112 H Carbon Dioxide 20.9 L Anion Gap 8 BUN 17 Creatinine 1.57 H Estimated GFR 53 L Random Glucose 83 Calcium 7.7 L Phosphorus 3.7 Magnesium 1.6 Albumin 2.7 L Random Vancomycin 12.3 - Impressions ITS Impressions Foot X-Ray 12/29/17 00:00 CONCLUSION: Forefoot amputation as described. Discharge Plan - Discharge Disposition Patient Disposition: 01 Discharge Home - Discharge Condition Condition: Stable - Discharge Order Discharge Orders: Discharge Order (Routine); Ordered 12/30/17 Ordered By: Jorge Dunbar - Discharge Details Anticipated Discharge Date: 12/30/17 Discharge Comment: Cleared by PT. Will need walker. followup with Dr Chong in 1 week - Physicians Team Primary Care Provider: NON STAFF,PROVIDER Attending Provider: Jorge Dunbar Other Providers: Cristi Colin ; Lexie Chong DPM
[2017-12-30] MEDS ORDERED: Piperacil/Tazo 3.375 GM Premix 50 ML IV.SIG SCH (18:00)
[2017-12-30] MEDS: Sod Chloride 0.9% Inj 1,000 ML IV.CONT SCH (18:17)
--- NOTE | 2017-12-31 15:24 | MP ---
cc: [email or web address] JESSY DATE OF OPERATION: 12/29/2017 INDICATIONS: The patient presented initially to the emergency department with bone exposed to the left dorsal aspect of the proximal interphalangeal joint of the second digit. He has had multiple foot surgeries by different surgeons in both [place] and with Dr. Jacobo here in [facility] as well as vascular surgeries in the past. He relates a history of his left second toe migrating and dislocating and rubbing in shoe gear, creating a wound that has there for a long time to the dorsal aspect of the second digit. He is unsure of exactly how long the wound had been present, but he did have findings consistent with osteomyelitis on imaging studies that were performed while in-house here. I discussed with him the risks, benefits, and potential complications of surgery and recommended that due to having a wound to the medial aspect of his residual foot in addition to his dislocated toe, I recommended a partial second ray amputation to that area in order to be able to remove enough bone to give enough soft tissue for primary closure attempt. The patient agreed with the procedure and signed consent for the procedure. Of note, the patient did have an attempt made to do this procedure prior to the actual procedure occurring where the patient was taken back to the surgical suite. After timeouts were performed per hospital protocol it was noted that the consent was written incorrectly, that the nurse had not transcribed the actual procedure name verbatim as per the order correctly and the way that she had written it in her interpretation did not correctly portray the actual procedure that was going to happen and it was deemed necessary to wake the patient back up, allow him to recover, discuss with him that this had occurred and a have the patient sign a new consent, true procedure that was to occur and I discussed with him the risks, benefits, and potential complications of surgery. PROCEDURE IN DETAIL: He was then taken back to the surgical suite after anesthesia and nursing had seen him and confirmed the correct patient, side, and site as the left foot. He was in supine position and the left foot was prepped and draped in normal sterile fashion. The wound was noted to the medial aspect of the foot and was excised. It measured approximately 2.5 cm x 1 cm x 0.2 cm in depth with fibrogranular base and extended from the previous incision from where he had had a previous partial first ray amputation, down to the level of the second toe and the second toe was dorsally and medially dislocated at the metatarsophalangeal joint. An incision was made around the wound, continuing around the second toe in order to remove the second digit all the way down to the proximal shaft of the second metatarsal where the second metatarsal was transected using a saw and the distal second metatarsal as well as the toe and the wound were all sent to pathology as one specimen. A culture was taken of the surgical wound and good healthy bleeding viable tissue was noted within the wound bed. Irrigation was performed with normal saline followed by primary closure with 2-0 nylon suture. A dressing consisting of Xeroform, 4 x 4's, ABD x2, cast padding and Luis Eduardo bandage was applied to the left foot. The patient tolerated the procedure and anesthesia well without complications and will be nonweightbearing to the left foot with a walker. Likely per physical therapy recommendations, he will wear surgical shoe when he is up and about, but remove it when at rest. No further surgery is anticipated and he will need to followup in 1 week for a dressing change in the clinic. SHORT OPERATIVE NOTE: SURGEON: Lexie Chong DPM SPOOL TENDER: Staff. PREOPERATIVE DIAGNOSIS: Osteomyelitis, left second toe. POSTOPERATIVE DIAGNOSIS: Osteomyelitis, left second toe. PROCEDURE: Left foot partial second ray amputation. PATHOLOGY: 1. Culture left foot. 2. Partial second ray, left foot to pathology. ESTIMATED BLOOD LOSS: 20 mL. HEMOSTASIS: None. No tourniquet utilized. ANESTHESIA: General endotracheal anesthesia plus local consisting of 10 mL of 0.5% Marcaine plain. COMPLICATIONS: SPECIMENS: None. CONDITION: Stable to PACU. DISPOSITION: Nonweightbearing left foot, wear surgical shoe when up with physical therapy, but remove when at rest. No further surgery anticipated. Followup in clinic in 1 week for a dressing change. JESSY Stephens/keara , 02:51 PM , 03:00 PM
== END 2017-12-30 18:31 | disposition home or self-care (01) ==
LOC: NEPD 14:44 → NEDA 19:02 → N07 22:44
PROVIDERS: ADMIT Internal Medicine; ATTEND Internal Medicine

== ENCOUNTER 2018-01-27 11:19 | Inpatient (IN) ==
--- NOTE | 2018-01-27 16:04 | XR ---
EXAM DATE: 01/27/2018 4:02 PM EDT AGE/SEX: 72 years / Male INDICATIONS: Chest discomfort. CLINICAL DATA: This is the patient's initial encounter. Patient reports that signs and symptoms have been present for 1 day and indicates a pain score of 3/10. MEDICAL/SURGICAL HISTORY: None. None. COMPARISON: [facility], XR CHEST PA AND LAT, 09/14/2014. . FINDINGS: A single AP view of the chest demonstrates the lungs to be symmetrically aerated without evidence of mass, infiltrate or effusion. The cardiomediastinal contours are unremarkable. Osseous structures a re intact. CONCLUSION: Negative examination. Electronically signed by: Bk He MD 01/27/2018 4:03 PM EDT
[2018-01-27 16:30] LABS: Activated Partial Thrombo Time 21.4 sec (24.3-30.1); Prothrombin Time 10.3 sec (9.8-11.6)
[2018-01-27 16:33] LABS: Baso # (Auto) 0.1 th/mm3 (0.0-0.2); Baso % (Auto) 1.1 % (0.0-2.0); Eos # (Auto) 0.1 th/mm3 (0.0-0.4); Eos % (Auto) 1.1 % (0.0-4.0); Hematocrit 37.8 % (39.0-51.0); Hemoglobin 12.9 gm/dL (13.0-17.0); Lymph # (Auto) 1.3 th/mm3 (1.0-4.8); Lymph % (Auto) 22.5 % (9.0-44.0); Mean Corpuscular HGB Conc 34.1 % (32.0-36.0); Mean Corpuscular Hemoglobin 35.7 pg (27.0-34.0); Mean Corpuscular Volume 104.8 fL (80.0-100.0); Mean Platelet Volume 9.3 fL (7.0-11.0); Mono # (Auto) 0.5 th/mm3 (0.0-0.9); Mono % (Auto) 9.4 % (0.0-8.0); Neut # (Auto) 3.8 th/mm3 (1.8-7.7); Neut % (Auto) 65.9 % (16.0-70.0); Platelet Count 150 th/mm3 (150-450); Red Blood Count 3.61 mil/mm3 (4.50-5.90); White Blood Count 5.8 th/mm3 (4.0-11.0)
[2018-01-27 16:44] LABS: Alanine Aminotransferase 36 U/L (12-78); Albumin 3.7 g/dL (3.4-5.0); Anion Gap 11 meq/L (5-15); Aspartate Aminotransferase 54 U/L (15-37); Blood Urea Nitrogen 31 mg/dL (7-18); Calcium 8.3 mg/dL (8.5-10.1); Carbon Dioxide 21.3 meq/L (21.0-32.0); Chloride 105 meq/L (98-107); Glomerular Filtration Rate 47 mL/min (>89); Glucose,Random 102 mg/dL (74-106); Sodium 137 meq/L (136-145)
[2018-01-27 16:45] LABS: Alkaline Phosphatase 182 U/L (45-117); Total Protein 9.4 g/dL (6.4-8.2)
[2018-01-27 16:46] LABS: Potassium 5.2 meq/L (3.5-5.1)
--- NOTE | 2018-01-27 18:12 | ED ---
HPI General Chief complaint: Extremity Problem,Nontraumatic Stated complaint: Medical Complaint/Dr sent Time Seen by Provider: 01/27/18 15:11 History of Present Illness HPI narrative: Patient is a 72-year-old male with a history of partial amputation of his left foot presents emergency department for evaluation for surgery. Patient states he was seen several days ago by Dr. Chong and told to present today for surgery tomorrow. He has only complains of a chronic nonhealing wound, no fevers no cough no congestion no pain no abdominal pain nausea vomiting. Symptoms moderate, duration unknown, associated signs symptoms as above, context is peripheral neuropathy. Related Data Home Medications Medication Instructions Recorded Confirmed atorvastatin 40 mg PO DAILY 01/27/18 01/27/18 gabapentin 300 mg PO DAILY 01/27/18 01/27/18 meloxicam 15 mg PO DAILY 01/27/18 01/27/18 Previous Rx's Medication Instructions Recorded clindamycin HCl [Cleocin HCl] 300 mg PO TID #21 cap 01/31/18 hydrocodone-acetaminophen 1 tab PO Q4H PRN #12 tab 01/31/18 Allergies Allergy/AdvReac Type Severity Reaction Status Date / Time aspirin AdvReac Mild UPSET Verified 12/27/17 16:45 STOMACH Review of Systems ROS: all other systems reviewed are negative PMFSH Family History Family History Other Family history normal Social History Social History Substance History: No History of Abuse Second Hand Smoke Exposure: Yes Smoking Status: Current every day smoker Tobacco Type: Cigarettes How Often Do You Have a Drink Containing Alcohol: 2 to 3 times a week Recent Travel in [facility] within the Last 8 Weeks: No Recent Out of Country Travel within the Last 8 Weeks: No Immunization History Tetanus Immunization: <5 Years Hx Influenza Vaccine This Season: Unable to Assess Exam Narrative Exam Narrative: GENERAL: Well-developed well-nourished in no obvious distress SKIN: Focused skin assessment warm/dry. HEAD: Atraumatic. Normocephalic. EYES: Pupils equal and round. No scleral icterus. No injection or drainage. ENT: No nasal bleeding or discharge. Mucous membranes pink and moist. NECK: Trachea midline. No JVD. CARDIOVASCULAR: Regular rate and rhythm. No murmur appreciated. RESPIRATORY: No accessory muscle use. Clear to auscultation. Breath sounds equal bilaterally. GASTROINTESTINAL: Abdomen soft, non-tender, nondistended. Hepatic and splenic margins not palpable. MUSCULOSKELETAL: Partial amputation left forefoot about the great toe, wound is intact but moist with some surrounding white tissue which could be infectious or possibly granulation tissue. No clubbing. No cyanosis. No edema. NEUROLOGICAL: Awake and alert. No obvious cranial nerve deficits. Motor grossly within normal limits. Normal speech. PSYCHIATRIC: Appropriate mood and affect; insight and judgment normal. Course Initial Documented Vital Signs Temperature 98.4 F 01/27/18 11:26 Pulse Rate 91 H 01/27/18 11:26 Respiratory Rate 15 01/27/18 11:26 Blood Pressure 127/68 01/27/18 11:26 Pulse Oximetry 98 01/27/18 11:26 Last Documented Vital Signs Temperature 98.4 F 01/31/18 12:00 Pulse Rate 79 01/31/18 12:00 Respiratory Rate 20 01/31/18 12:00 Blood Pressure 129/72 01/31/18 12:00 Pulse Oximetry 96 01/31/18 12:00 Medical Decision Making [facility] Narrative Medical decision making narrative: Patient seen [address] Ch[address], has a prescription with him with instructions to report to the emergency department on 923 for admission and revision of partial foot amputation on the left side. Patient has no complaints currently. Appears well nontoxic and nonseptic. Patient discussed with Dr. Navarro for admission. Medical Screen Exam Complete: Yes Emergency Medical Condition: Yes Lab Data Result diagrams: 01/29/18 05:30 01/29/18 05:30 Lab Results 01/27/18 01/27/18 01/27/18 Range/Units 15:50 15:50 15:50 WBC 5.8 (4.0-11.0) th/mm3 RBC 3.61 L (4.50-5.90) mil/mm3 Hgb 12.9 L (13.0-17.0) gm/dL Hct 37.8 L (39.0-51.0) % MCV 104.8 H (80.0-100.0) fL MCH 35.7 H (27.0-34.0) pg MCHC 34.1 (32.0-36.0) % RDW 14.0 (11.6-17.2) % Plt Count 150 (150-450) th/mm3 MPV 9.3 (7.0-11.0) fL Neut % (Auto) 65.9 (16.0-70.0) % Lymph % (Auto) 22.5 (9.0-44.0) % Mckinley % (Auto) 9.4 H (0.0-8.0) % Eos % (Auto) 1.1 (0.0-4.0) % Baso % (Auto) 1.1 (0.0-2.0) % Neut # (Auto) 3.8 (1.8-7.7) th/mm3 Lymph # (Auto) 1.3 (1.0-4.8) th/mm3 Mckinley # (Auto) 0.5 (0.0-0.9) th/mm3 Eos # (Auto) 0.1 (0.0-0.4) th/mm3 Baso # (Auto) 0.1 (0.0-0.2) th/mm3 WBC Differential . Differential Comment Auto diff final PT 10.3 (9.8-11.6) sec INR 1.0 Ratio APTT 21.4 L (24.3-30.1) sec Sodium 137 (136-145) meq/L Potassium 5.2 H (3.5-5.1) meq/L Chloride 105 (98-107) meq/L Carbon Dioxide 21.3 (21.0-32.0) meq/L Anion Gap 11 (5-15) meq/L BUN 31 H (7-18) mg/dL Creatinine 1.75 H (0.60-1.30) mg/dL Estimated GFR 47 L (>89) mL/min Random Glucose 102 (74-106) mg/dL Calcium 8.3 L (8.5-10.1) mg/dL Total Bilirubin 0.6 (0.2-1.0) mg/dL AST 54 H (15-37) U/L ALT 36 (12-78) U/L Alkaline Phosphatase 182 H (45-117) U/L Troponin I Less than 0.02 L (0.02-0.05) ng/mL Total Protein 9.4 H (6.4-8.2) g/dL Albumin 3.7 (3.4-5.0) g/dL 01/28/18 01/28/18 01/29/18 Range/Units 04:24 04:24 05:30 WBC 4.2 5.0 (4.0-11.0) th/mm3 RBC 3.27 L 3.25 L (4.50-5.90) mil/mm3 Hgb 11.5 L 11.7 L (13.0-17.0) gm/dL Hct 34.0 L 34.5 L (39.0-51.0) % MCV 103.9 H 106.2 H (80.0-100.0) fL MCH 35.3 H 36.0 H (27.0-34.0) pg MCHC 34.0 33.9 (32.0-36.0) % RDW 14.2 14.3 (11.6-17.2) % Plt Count 159 127 L (150-450) th/mm3 MPV 10.5 9.5 (7.0-11.0) fL Neut % (Auto) 41.3 (16.0-70.0) % Lymph % (Auto) 37.8 (9.0-44.0) % Mckinley % (Auto) 14.6 H (0.0-8.0) % Eos % (Auto) 5.1 H (0.0-4.0) % Baso % (Auto) 1.2 (0.0-2.0) % Neut # (Auto) 1.7 L (1.8-7.7) th/mm3 Lymph # (Auto) 1.6 (1.0-4.8) th/mm3 Mckinley # (Auto) 0.6 (0.0-0.9) th/mm3 Eos # (Auto) 0.2 (0.0-0.4) th/mm3 Baso # (Auto) 0.0 (0.0-0.2) th/mm3 WBC Differential . Differential Comment Auto diff final PT (9.8-11.6) sec INR Ratio APTT (24.3-30.1) sec Sodium 139 (136-145) meq/L Potassium 5.4 H (3.5-5.1) meq/L Chloride 108 H (98-107) meq/L Carbon Dioxide 19.9 L (21.0-32.0) meq/L Anion Gap 11 (5-15) meq/L BUN 29 H (7-18) mg/dL Creatinine 1.36 H (0.60-1.30) mg/dL Estimated GFR 62 L (>89) mL/min Random Glucose 84 (74-106) mg/dL Calcium 8.1 L (8.5-10.1) mg/dL Total Bilirubin 0.6 (0.2-1.0) mg/dL AST 45 H (15-37) U/L ALT 31 (12-78) U/L Alkaline Phosphatase 150 H (45-117) U/L Troponin I (0.02-0.05) ng/mL Total Protein 7.9 D (6.4-8.2) g/dL Albumin 3.0 L D (3.4-5.0) g/dL 01/29/18 Range/Units 05:30 WBC (4.0-11.0) th/mm3 RBC (4.50-5.90) mil/mm3 Hgb (13.0-17.0) gm/dL Hct (39.0-51.0) % MCV (80.0-100.0) fL MCH (27.0-34.0) pg MCHC (32.0-36.0) % RDW (11.6-17.2) % Plt Count (150-450) th/mm3 MPV (7.0-11.0) fL Neut % (Auto) (16.0-70.0) % Lymph % (Auto) (9.0-44.0) % Mckinley % (Auto) (0.0-8.0) % Eos % (Auto) (0.0-4.0) % Baso % (Auto) (0.0-2.0) % Neut # (Auto) (1.8-7.7) th/mm3 Lymph # (Auto) (1.0-4.8) th/mm3 Mckinley # (Auto) (0.0-0.9) th/mm3 Eos # (Auto) (0.0-0.4) th/mm3 Baso # (Auto) (0.0-0.2) th/mm3 WBC Differential Differential Comment PT (9.8-11.6) sec INR Ratio APTT (24.3-30.1) sec Sodium 139 (136-145) meq/L Potassium 4.9 (3.5-5.1) meq/L Chloride 111 H (98-107) meq/L Carbon Dioxide 22.5 (21.0-32.0) meq/L Anion Gap 6 (5-15) meq/L BUN 26 H (7-18) mg/dL Creatinine 1.41 H (0.60-1.30) mg/dL Estimated GFR 60 L (>89) mL/min Random Glucose 87 (74-106) mg/dL Calcium 8.3 L (8.5-10.1) mg/dL Total Bilirubin (0.2-1.0) mg/dL AST (15-37) U/L ALT (12-78) U/L Alkaline Phosphatase (45-117) U/L Troponin I (0.02-0.05) ng/mL Total Protein (6.4-8.2) g/dL Albumin (3.4-5.0) g/dL Imaging Data Radiologist's impression: Foot X-Ray 01/27/18 00:00 CONCLUSION: Osteopenia and postsurgical changes. Chest X-Ray 01/27/18 15:39 CONCLUSION: Negative examination. Carotid Doppler Study 01/28/18 00:00 CONCLUSION: 1. Right Internal Carotid Artery: Findings indicate <50% stenosis. 2. Left Internal Carotid Artery: Findings indicate <50% stenosis. Foot MRI 01/28/18 07:11 CONCLUSION: 1. There is been previous surgeries to the foot with some edema and enhancement along the medial soft tissues overlying the partially resected first metatarsal bone. With a cystic change in the marrow and the edema is difficult to rule out ongoing infection of the bone Aorta w/Runoff CTA 01/28/18 14:40 CONCLUSION: 1. Patent right femoral/popliteal bypass graft. 2. On the left side, no significant outflow disease down to the popliteal and extensive vascular calcification in the narrowed calf vessels. Foot X-Ray 01/29/18 00:00 CONCLUSION: Amputation at the level the metatarsal bases. Discharge Plan Discharge Disposition Patient Disposition: 01 Discharge Home Discharge Condition Condition: Good Discharge Order Discharge Orders: Discharge Order (Routine); Ordered 01/31/18 Ordered By: Noelle Dominique Physicians Team ED Provider: Aryan Byrne Primary Care Provider: NON STAFF,PROVIDER Attending Provider: Noelle Dominique Other Providers: Lexie Chongrevic,Slobodan ; [employer] Status ED Status: Left Department Discharge Information Discharge Date/Time: 01/31/18 15:48
[2018-01-27] MEDS ORDERED: Acetaminophen 325 MG Tablet PO PRN (19:31)
[2018-01-27] MEDS ORDERED: Bisacodyl 10 MG Supp RECTAL PRN (19:31)
--- NOTE | 2018-01-27 19:33 | P.HPIM ---
History of Present Illness Primary Care Physician: PROVIDER NON STAFF History of Present Illness: This is a 72-year-old male with a PMH of HTN, Hyperlipidemia, PVD and Left Foot Toe Amputation who was sent to the ER by Dr. Chong for admission to undergo surgical intervention in am. Previous admit 12/27-12/30/17 for left second toe wound w/ Osteomyelitis, s/p eval by Dr. Chong and underwent Partial 2nd Ray Amputation on 12/29/17, was d/c'd home on Augmentin po bid x14 days, states he completed antibiotics as prescribed. Was seen by Dr. Chong in the office on 01/23/18 and given Rx to present to the ER on 01/27/18 for admission and surgical intervention in am for non-healing wound. Denies fever or chills. On arrival, BP 127/68, HR 91, O2 sat 98% on RA, Afebrile. CBC essentially unremarkable. INR 1.0. Creatinine 1.75, previously 1.57 on 12/30/2017. Troponin negative. - Diagnosis (1) Postoperative wound infection (2) Renal insufficiency Review of Systems PAST FAMILY HISTORY: Reviewed. No h/o DM or CAD All other systems reviewed negative except as stated in HPI PMFSH - History History Provided By: Patient - Medical History Medical History: Medical History (Last Reviewed 01/27/18 @ 17:57 by Wilian Rose) Amputated toe Bleeding ulcer Blood transfusion, without reported diagnosis High cholesterol History of amputation of toe Peripheral vascular disease - Surgical History Surgical History: Surgical History (Last Reviewed 01/27/18 @ 17:57 by Wilian Rose) Previous back surgery - Family History Family History: Family History (Last Updated 12/27/17 @ 20:50 by Nighat Bullard MD) Other Family history normal - Tobacco History Second Hand Smoke Exposure: Yes Tobacco Use In Past 30 Days: Yes Smoking Status: Current every day smoker Tobacco Type: Cigarettes - Alcohol History How Often Do You Have a Drink Containing Alcohol: 2 to 3 times a week - Substance Use History Substance History: No History of Abuse - Travel History Recent Travel in the [place] Within the Last 8 Weeks: No Recent Travel Out of the Country Within the Last 8 Weeks: No - Immunization History Tetanus Immunization: <5 Years Hx Influenza Vaccine This Season: Unable to Assess Medications and Allergies Active Medications: Active Medications Hydrocodone Bitart/Acetaminophen ([place] 5/325) 1 tab PO Q4H PRN PRN Reason: PAIN 3-5 Atorvastatin Calcium (Lipitor) 40 mg PO DAILY ABILIO Gabapentin (Neurontin) 300 mg PO DAILY ABILIO Morphine Sulfate (Morphine Inj) 2 mg IV.PUSH Q4H PRN PRN Reason: PAIN 6-10 Sodium Chloride (Ns Flush) 2 ml IV.FLUSH UNSCH PRN PRN Reason: FLUSH AFTER USING IV ACCESS Allergies Allergy/AdvReac Type Severity Reaction Status Date / Time aspirin AdvReac Mild UPSET Verified 12/27/17 16:45 STOMACH Home Medications Medication Instructions Recorded Confirmed Type atorvastatin 40 mg PO DAILY 01/27/18 01/27/18 History gabapentin 300 mg PO DAILY 01/27/18 01/27/18 History meloxicam 15 mg PO DAILY 01/27/18 01/27/18 History Exam Vital signs: Vital Signs 01/27/18 11:26 01/27/18 17:00 01/27/18 18:02 Temperature 98.4 F Pulse Rate 91 H Respiratory Rate Blood Pressure 127/68 Pulse Oximetry 98 96 Intake & Output 01/27/18 01/27/18 01/28/18 06:59 18:59 06:59 Weight 69.4 kg Narrative: PE: GENERAL: Very pleasant elderly black male in no acute distress. SKIN: Focused skin assessment warm and dry. HEENT: PERRLA, EOMI. No scleral icterus or conjunctival pallor. No lid lag or facial droop. CARDIOVASCULAR: Regular rate and rhythm. No obvious murmurs to auscultation. No chest tenderness to palpation. RESPIRATORY: No obvious rhonchi or wheezing. Clear to auscultation. Breath sounds equal bilaterally. GASTROINTESTINAL: Abdomen soft, non-tender, nondistended. BS normal. MUSCULOSKELETAL: Extremities without clubbing, cyanosis, or edema. No obvious deformities. Previous left toe amputation, sutures in place, no significant drainage. NEUROLOGICAL: Awake, alert and oriented x4. No focal neurologic deficits. Moving both upper and lower extremities spontaneously. PSYCHIATRIC: Appropriate mood and affect. Insight and judgment normal. Results - Labs CBC & Chem 7: 01/27/18 15:50 01/27/18 15:50 Labs: Short CBC 01/27/18 Range/Units 15:50 WBC 5.8 (4.0-11.0) th/mm3 Hgb 12.9 L (13.0-17.0) gm/dL Hct 37.8 L (39.0-51.0) % Plt Count 150 (150-450) th/mm3 BMP 01/27/18 15:50 Sodium 137 Potassium 5.2 H Chloride 105 Carbon Dioxide 21.3 BUN 31 H Creatinine 1.75 H Calcium 8.3 L Cardiac Enzymes 01/27/18 Range/Units 15:50 Troponin I Less than 0.02 L (0.02-0.05) ng/mL Liver Function 01/27/18 Range/Units 15:50 Total Bilirubin 0.6 (0.2-1.0) mg/dL AST 54 H (15-37) U/L ALT 36 (12-78) U/L Alkaline Phosphatase 182 H (45-117) U/L Albumin 3.7 (3.4-5.0) g/dL - Imaging Impressions Chest X-Ray 01/27/18 15:39 CONCLUSION: Negative examination. Caprini VTE Risk Assessment Caprini VTE Risk Assessment: No/Low Risk (score <= 1) VTE Mechanical Exception: LE injury/wound Caprini Risk Assessment Model: Point Value = 1 Point Value = 2 Point Value = 3 Point Value = 5 Age 41-60 Minor surgery BMI > 25 kg/m2 Swollen legs Varicose veins or History of unexplained or recurrent spontaneous Oral contraceptives or hormone replacement Sepsis (< 1 month) Serious lung disease, including pneumonia (< 1 month) Abnormal pulmonary function Acute myocardial infarction Congestive heart failure (< 1 month) History of inflammatory bowel disease Medical patient at bed rest Age 61-74 Arthroscopic surgery Major open surgery (> 45 min) Laparoscopic surgery (> 45 min) Malignancy Confined to bed (> 72 hours) Immobilizing plaster cast Central venous access Age >= 75 History of VTE Family history of VTE Factor V Leiden Prothrombin [id number] Lupus anticoagulant Anticardiolipin antibodies Elevated serum homocysteine Heparin-induced thrombocytopenia Other congenital or acquired thrombophilia Stroke (< 1 month) Elective arthroplasty Hip, pelvis, or leg fracture Acute spinal cord injury (< 1 month) Prophylaxis Regimen: Total Risk Factor Score Risk Level Prophylaxis Regimen 0-1 Low Early ambulation 2 Moderate Order ONE of the following: *Sequential Compression Device (SCD) *Heparin 5000 units SQ BID 3-4 Higher Order ONE of the following medications: *Heparin 5000 units SQ TID *Enoxaparin/Lovenox 40 mg SQ daily (WT < 150 kg, CrCl > 30 mL/min) *Enoxaparin/Lovenox 30 mg SQ daily (WT < 150 kg, CrCl > 10-29 mL/min) *Enoxaparin/Lovenox 30 mg SQ BID (WT < 150 kg, CrCl > 30 mL/min) AND/OR *Sequential Compression Device (SCD) 5 or more Highest Order ONE of the following medications: *Heparin 5000 units SQ TID (Preferred with Epidurals) *Enoxaparin/Lovenox 40 mg SQ daily (WT < 150 kg, CrCl > 30 mL/min) *Enoxaparin/Lovenox 30 mg SQ daily (WT < 150 kg, CrCl > 10-29 mL/min) *Enoxaparin/Lovenox 30 mg SQ BID (WT < 150 kg, CrCl > 30 mL/min) AND *Sequential Compression Device (SCD) Assessment and Plan - Assessment (1) Postoperative wound infection Code(s): T81.4XXA - Infection following a procedure, initial encounter Status : Acute (2) Renal insufficiency Code(s): N28.9 - Disorder of kidney and ureter, unspecified Status: Acute - Plan A/P: 1. Post Op Wound Infection: Nonhealing left foot wound, previous left partial 2nd ray amputation 01/01/[address] Chong, referred to ER for admission and surgical intervention in am for nonhealing wound. NPO after midnight, IVF, analgesics/antiemetics, Clinda IV 2. Renal Insufficiency: Acute on Chronic. Creatinine 1.75, previously 1.57 on 12/30/17, monitor I/O, repeat labs in am. 3. DVT Prophylaxis: Mechanical contraindication due to foot infection 4. Social work for d/c planning as needed 5. Case discussed w/ ER physician at length, labs/records/imaging reviewed by me
--- NOTE | 2018-01-27 20:29 | XR ---
EXAM DATE: 01/27/2018 8:16 PM EDT AGE/SEX: 72 years / Male INDICATIONS: Left foot pain since surgery 1 month ago. CLINICAL DATA: This is the patient's initial encounter. Patient reports that signs and symptoms have been present for 1 month and indicates a pain score of 6/10. MEDICAL/SURGICAL HISTORY: None. . Left foot surgery. COMPARISON: [facility] [place], FOOT COMPLETE LEFT 3V, 12/29/2017. . FINDINGS: There is amputation at the level of the first proximal metatarsal bone and mid second metat arsal bone, third proximal phalanx not significantly changed. Bony structures are extremely osteopeni c. CONCLUSION: Osteopenia and postsurgical changes. Electronically signed by: Aleida Brown MD 01/27/2018 8:28 PM EDT
[2018-01-27] MEDS: Sod Chloride 0.9% Inj 1,000 ML IV.CONT SCH (21:00)
[2018-01-27] MEDS: Morphine Sulfate Inj 2 MG/ML Vial IV.PUSH PRN (21:53)
[2018-01-27] MEDS: Clindamycin 900 mg/NS Premix 900 MG/50 ML PIGGYBACK IV.SIG SCH (22:00)
[2018-01-27] MEDS: Senna/Docusate Sodium 8.6/50 MG Tablet PO SCH (22:12)
[2018-01-28] MEDS: Clindamycin 900 mg/NS Premix 900 MG/50 ML PIGGYBACK IV.SIG SCH ×3 (05:14→20:22)
[2018-01-28] MEDS: Morphine Sulfate Inj 2 MG/ML Vial IV.PUSH PRN ×3 (05:14→20:19)
[2018-01-28 05:46] LABS: Baso % (Auto) 1.2 % (0.0-2.0); Eos # (Auto) 0.2 th/mm3 (0.0-0.4); Eos % (Auto) 5.1 % (0.0-4.0); Hemoglobin 11.5 gm/dL (13.0-17.0); Lymph # (Auto) 1.6 th/mm3 (1.0-4.8); Lymph % (Auto) 37.8 % (9.0-44.0); Mean Corpuscular Hemoglobin 35.3 pg (27.0-34.0); Mean Corpuscular Volume 103.9 fL (80.0-100.0); Mean Platelet Volume 10.5 fL (7.0-11.0); Mono # (Auto) 0.6 th/mm3 (0.0-0.9); Mono % (Auto) 14.6 % (0.0-8.0); Neut # (Auto) 1.7 th/mm3 (1.8-7.7); Neut % (Auto) 41.3 % (16.0-70.0); Platelet Count 159 th/mm3 (150-450); Red Blood Count 3.27 mil/mm3 (4.50-5.90); Red Cell Distribution Width 14.2 % (11.6-17.2); White Blood Count 4.2 th/mm3 (4.0-11.0)
[2018-01-28 06:02] LABS: Alanine Aminotransferase 31 U/L (12-78); Alkaline Phosphatase 150 U/L (45-117); Anion Gap 11 meq/L (5-15); Aspartate Aminotransferase 45 U/L (15-37); Blood Urea Nitrogen 29 mg/dL (7-18); Calcium 8.1 mg/dL (8.5-10.1); Carbon Dioxide 19.9 meq/L (21.0-32.0); Chloride 108 meq/L (98-107); Glomerular Filtration Rate 62 mL/min (>89); Glucose,Random 84 mg/dL (74-106); Potassium 5.4 meq/L (3.5-5.1); Sodium 139 meq/L (136-145); Total Protein 7.9 g/dL (6.4-8.2)
[2018-01-28] MEDS: Sod Chloride 0.9% Inj 1,000 ML IV.CONT SCH ×3 (06:24→20:33)
[2018-01-28] MEDS: Gabapentin 300 MG Capsule PO SCH (09:00)
[2018-01-28] MEDS: Senna/Docusate Sodium 8.6/50 MG Tablet PO SCH ×2 (09:00→20:19)
--- NOTE | 2018-01-28 09:14 | P.PNIM ---
Subjective Interval history: Pt is resting comfortably in bed, and has no acute complaints today. States that overnight he slept well, but was having problems with his L hand "falling asleep," which has been persistent for the last several months. Pt states that he has not urinated but one time since arriving to the hospital, but attributes it to his decreased in fluid intake from being NPO from surgery. Pt has not had a BM since admission, but reports passing gas. He is scheduled for an MRI of his L foot this AM and surgical revision of the nonhealing surgical wound this evening. Pt denies any chest pain, SOB, cough, fevers, chills or weakness. Physical Exam Vital signs: Vital Signs 01/27/18 11:26 01/27/18 17:00 01/27/18 18:02 Temperature 98.4 F Pulse Rate 91 H Respiratory Rate 15 17 17 Blood Pressure 127/68 Pulse Oximetry 98 96 01/27/18 21:05 01/27/18 21:40 01/28/18 00:00 Temperature 98.1 F 98.0 F Pulse Rate 60 57 L 58 L Respiratory Rate 18 18 Blood Pressure 125/75 121/65 Pulse Oximetry 99 98 01/28/18 04:00 01/28/18 08:00 Temperature 97.5 F L 97.5 F L Pulse Rate 51 L 52 L Respiratory Rate 18 16 Blood Pressure 125/70 124/75 Pulse Oximetry 97 98 Intake & Output 01/27/18 01/28/18 01/28/18 18:59 06:59 18:59 Intake Total 1100 / 1100 240 / 240 Output Total 300 / 300 Balance 1100 / 1100 -60 / -60 Weight 69.4 kg 62.1 kg Intake: IV 1100 / 1100 NS Inj 1,000 ML @ 100 mls/hr IV 1000 / 1000 .CONT .Q10H ABILIO Rx#:[id number] Cleocin 900 mg/NS Premix 900 mg 100 / 100 In 50 ml @ 100 mls/hr IV.SIG Q8H ABILIO Rx#:[id number] Oral 240 / 240 Output: Urine 300 / 300 Other: # Voids 1 Weight On Admission 62.1 kg - Constitutional no acute distress, thin - Routine HEENT Exam Head: Present: normocephalic, atraumatic Eye: Present: EOMI, PERRL. Absent: scleral injection - Routine Neck Exam Present: supple, trachea midline. Absent: JVD, lymphadenopathy, thyromegaly, tenderness - Routine Respiratory Exam Present: CTA bilaterally. Absent: accessory muscle use, decreased breath sounds , rales, respiratory distress, rhonchi, wheezes, crackles - Routine Cardiovascular Exam Present: RRR, S1, S2. Absent: murmur, gallop, rubs - Routine Abdominal Exam Present: soft, normoactive bowel sounds. Absent: tenderness, distended, rebound - Routine Extremities Exam Present: pulses intact, amputation. Absent: cyanosis, clubbing, edema Comments: s/p amputation of the 1st-3rd digits of the L foot with a nonhealing wound noted at the position of the first and second digit. Minimal purulent drainage. - Routine Skin Exam Present: intact, dry, warm. Absent: cyanosis, erythema - Routine Neurological Exam Present: alert, oriented X3 Results - Labs CBC & Chem 7: 01/28/18 04:24 01/28/18 04:24 Laboratory Results - last 24 hr 01/27/18 01/27/18 01/27/18 15:50 15:50 15:50 WBC 5.8 RBC 3.61 L Hgb 12.9 L Hct 37.8 L MCV 104.8 H MCH 35.7 H MCHC 34.1 RDW 14.0 Plt Count 150 MPV 9.3 Neut % (Auto) 65.9 Lymph % (Auto) 22.5 Garza % (Auto) 9.4 H Eos % (Auto) 1.1 Baso % (Auto) 1.1 Neut # (Auto) 3.8 Lymph # (Auto) 1.3 Garza # (Auto) 0.5 Eos # (Auto) 0.1 Baso # (Auto) 0.1 WBC Differential . Differential Comment Auto diff final PT 10.3 INR 1.0 APTT 21.4 L Sodium 137 Potassium 5.2 H Chloride 105 Carbon Dioxide 21.3 Anion Gap 11 BUN 31 H Creatinine 1.75 H Estimated GFR 47 L Random Glucose 102 Calcium 8.3 L Total Bilirubin 0.6 AST 54 H ALT 36 Alkaline Phosphatase 182 H Troponin I Less than 0.02 L Total Protein 9.4 H Albumin 3.7 01/28/18 01/28/18 04:24 04:24 WBC 4.2 RBC 3.27 L Hgb 11.5 L Hct 34.0 L MCV 103.9 H MCH 35.3 H MCHC 34.0 RDW 14.2 Plt Count 159 MPV 10.5 Neut % (Auto) 41.3 Lymph % (Auto) 37.8 Garza % (Auto) 14.6 H Eos % (Auto) 5.1 H Baso % (Auto) 1.2 Neut # (Auto) 1.7 L Lymph # (Auto) 1.6 Garza # (Auto) 0.6 Eos # (Auto) 0.2 Baso # (Auto) 0.0 WBC Differential . Differential Comment Auto diff final PT INR APTT Sodium 139 Potassium 5.4 H Chloride 108 H Carbon Dioxide 19.9 L Anion Gap 11 BUN 29 H Creatinine 1.36 H Estimated GFR 62 L Random Glucose 84 Calcium 8.1 L Total Bilirubin 0.6 AST 45 H ALT 31 Alkaline Phosphatase 150 H Troponin I Total Protein 7.9 D Albumin 3.0 L D - Imaging Impressions Foot X-Ray 01/27/18 00:00 CONCLUSION: Osteopenia and postsurgical changes. Chest X-Ray 01/27/18 15:39 CONCLUSION: Negative examination. Assessment and Plan - Assessment (1) Acute osteomyelitis of left ankle or foot Code(s): M86.172 - Other acute osteomyelitis, left ankle and foot Status: Acute Plan: Pt scheduled for MRI of L foot in the AM with surgical revision in the evening with Dr. Chong. Pt will remain NPO awaiting surgery. Pt currently on IV Cleocin for wound infection. (2) Postoperative wound infection Code(s): T81.4XXA - Infection following a procedure, initial encounter Status : Acute Plan: Pt currently on IV Cleocin for wound infection. Continue to monitor laboratory and clinical indicators for infection for a downward trend to assure resolution of infection. (3) Renal insufficiency Code(s): N28.9 - Disorder of kidney and ureter, unspecified Status: Acute Plan: Acute on chronic. Creatinine is downtrending from 1.75 on admission to 1.36. Will continue to monitor BUN/Cr with routine labs, along with I/Os and electrolytes. Avoid nephrotoxic agents. - Attending Attestation The exam, history, and the medical decision-making described in the above note were completed with the assistance of the senior medical student Grant GONZALEZ. I reviewed and agree with the findings presented. I attest that I had a face-to- face encounter with the patient on the same day, and personally performed and documented my assessment and findings in the medical record. - Awaiting surgical intervention by Podiatry. Vascular surgery consulted.
--- NOTE | 2018-01-28 11:00 | MR ---
EXAM DATE: 01/28/2018 10:37 AM EDT AGE/SEX: 72 years / Male INDICATIONS: Osteomyelitis. Abscess left foot after having 1st and 2nd toe removed last month. CLINICAL DATA: This is the patient's subsequent encounter. Patient reports that signs and symptoms h ave been present for 1 month and indicates a pain score of 4/10. MEDICAL/SURGICAL HISTORY: Hypertension. Peripheral vascular disease. Fusion, lumbar. Partial a mputation left foot 1st and 2nd digits. COMPARISON: No prior exams available for comparison. TECHNIQUE: Multiplanar, multisequence MRI examination was performed without contrast and after th e intravenous administration of 7 ml Gadavist (gadobutrol) single exam dose. FINDINGS: The patient's had previous surgery of the foot with resection of the majority of the first metatarsal bone, distal part of the second metatarsal bone and a small portion of the third toe. The patient pizarro s infarct of practically every single bone. There is mild edema throughout the foot in the subcutaneous tissues. The visualized extensor tendons are intact. The extensor tendons are intact. The plantar fascia is unremarkable. There are some very minimal low-grade edema in the interosseous musculature between the second and third and third and fo urth metatarsal shafts. Quite minimal. Prepostcontrast images show some minimal enhancement of the me dial distal foot. On the axial IR images there is some mild edema along the medial tissues of the distal foot but I don 't see any pockets of nonenhancement or fistulous tracts to suggest ongoing osteomyelitis or infectio n. There is some mild enhancement of the remaining first metatarsal bone is also due to very prominen t infarct of that bone, difficult to rule out infection CONCLUSION: 1. There is been previous surgeries to the foot with some edema and enhancement along the medial sof t tissues overlying the partially resected first metatarsal bone. With a cystic change in the marrow and the edema is difficult to rule out ongoing infection of the bone Electronically signed by: Aiden Lantigua MD 01/28/2018 10:58 AM EDT
[2018-01-28] MEDS ORDERED: Metoprolol Tartrate 25 MG Tablet PO SCH (13:07)
[2018-01-28] MEDS ORDERED: Chlorhexidine Gluconate 2% 1 Pack (2 Cloths) TOPICAL SCH (13:07)
[2018-01-28] MEDS ORDERED: Gadobutrol PF 7.5 MMOL/7.5 ML Vial (for RAD) IV.SIG ONE (13:50)
[2018-01-28] MEDS ORDERED: Sodium Chlor 0.9% Inj 500 ML IV.SIG SCH (14:00)
--- NOTE | 2018-01-28 14:39 | P.PNVS ---
Subjective Subjective/Hospital Course: 01/28/2018 Patient seen and evaluated full consult dictated We will proceed with surgery as per podiatry and I will evaluate patient as we go along Podiatry surgery at this point takes precedence Thanks Deisy Objective Vital Signs / I&O: Vital Signs 01/27/18 17:00 01/27/18 18:02 01/27/18 21:05 Temperature 98.1 F Pulse Rate 60 Respiratory Rate 17 17 18 Blood Pressure 125/75 Pulse Oximetry 96 99 01/27/18 21:40 01/28/18 00:00 01/28/18 04:00 Temperature 98.0 F 97.5 F L Pulse Rate 57 L 58 L 51 L Respiratory Rate 18 18 Blood Pressure 121/65 125/70 Pulse Oximetry 98 97 01/28/18 08:00 01/28/18 09:00 01/28/18 11:36 Temperature 97.5 F L Pulse Rate 52 L 52 L Respiratory Rate 16 Blood Pressure 124/75 Pulse Oximetry 98 98 01/28/18 12:00 Temperature 97.4 F L Pulse Rate 50 L Respiratory Rate 16 Blood Pressure 119/69 Pulse Oximetry 99 Intake & Output 01/27/18 01/28/18 01/28/18 18:59 06:59 18:59 Intake Total 1100 / 1100 290 / 290 Output Total 300 / 300 Balance 1100 / 1100 -10 / -10 Weight 69.4 kg 62.1 kg Intake: IV 1100 / 1100 50 / 50 NS Inj 1,000 ML @ 100 mls/hr IV 1000 / 1000 .CONT .Q10H [facility] Rx#:[id number] Cleocin 900 mg/NS Premix 900 mg 100 / 100 50 / 50 In 50 ml @ 100 mls/hr IV.SIG Q8H [facility] Rx#:[id number] Oral 240 / 240 Output: Urine 300 / 300 Other: # Voids 1 Weight On Admission 62.1 kg Laboratory Results - last 24 hr 01/27/18 01/27/18 01/27/18 15:50 15:50 15:50 WBC 5.8 RBC 3.61 L Hgb 12.9 L Hct 37.8 L MCV 104.8 H MCH 35.7 H MCHC 34.1 RDW 14.0 Plt Count 150 MPV 9.3 Neut % (Auto) 65.9 Lymph % (Auto) 22.5 [place] % (Auto) 9.4 H Eos % (Auto) 1.1 Baso % (Auto) 1.1 Neut # (Auto) 3.8 Lymph # (Auto) 1.3 [place] # (Auto) 0.5 Eos # (Auto) 0.1 Baso # (Auto) 0.1 WBC Differential . Differential Comment Auto diff final PT 10.3 INR 1.0 APTT 21.4 L Sodium 137 Potassium 5.2 H Chloride 105 Carbon Dioxide 21.3 Anion Gap 11 BUN 31 H Creatinine 1.75 H Estimated GFR 47 L Random Glucose 102 Calcium 8.3 L Total Bilirubin 0.6 AST 54 H ALT 36 Alkaline Phosphatase 182 H Troponin I Less than 0.02 L Total Protein 9.4 H Albumin 3.7 01/28/18 01/28/18 04:24 04:24 WBC 4.2 RBC 3.27 L Hgb 11.5 L Hct 34.0 L MCV 103.9 H MCH 35.3 H MCHC 34.0 RDW 14.2 Plt Count 159 MPV 10.5 Neut % (Auto) 41.3 Lymph % (Auto) 37.8 [place] % (Auto) 14.6 H Eos % (Auto) 5.1 H Baso % (Auto) 1.2 Neut # (Auto) 1.7 L Lymph # (Auto) 1.6 [place] # (Auto) 0.6 Eos # (Auto) 0.2 Baso # (Auto) 0.0 WBC Differential . Differential Comment Auto diff final PT INR APTT Sodium 139 Potassium 5.4 H Chloride 108 H Carbon Dioxide 19.9 L Anion Gap 11 BUN 29 H Creatinine 1.36 H Estimated GFR 62 L Random Glucose 84 Calcium 8.1 L Total Bilirubin 0.6 AST 45 H ALT 31 Alkaline Phosphatase 150 H Troponin I Total Protein 7.9 D Albumin 3.0 L D Impressions Foot X-Ray 01/27/18 00:00 CONCLUSION: Osteopenia and postsurgical changes. Chest X-Ray 01/27/18 15:39 CONCLUSION: Negative examination. Foot MRI 01/28/18 07:11 CONCLUSION: 1. There is been previous surgeries to the foot with some edema and enhancement along the medial soft tissues overlying the partially resected first metatarsal bone. With a cystic change in the marrow and the edema is difficult to rule out ongoing infection of the bone
--- NOTE | 2018-01-28 15:40 | US ---
EXAM DATE: 01/28/2018 3:36 PM EDT AGE/SEX: 72 years / Male INDICATIONS: Bruit. CLINICAL DATA: This is the patient's initial encounter. Patient reports that signs and symptoms have been present for 1 day and indicates a pain score of 0/10. MEDICAL/SURGICAL HISTORY: . Hypertension. Peripheral vascular disease. . Fusion, lumbar. Parti al amputation left foot 1st and 2nd digits COMPARISON: No prior exams available for comparison. VELOCITY PARAMETERS: ICA/CCA Ratio: Right 1.0 , Left 0.8 ICA: Right 81.6 cm/sec, Left 69.1 cm/sec CCA: Right 78.9 cm/sec, Left 90.3 cm/sec ECA: Right 60.7 cm/sec, Left 54.8 cm/sec Vertebral: Right 58.3 cm/sec antegrade, Left 82.7 cm/sec antegrade FINDINGS: Right Carotid: Bulky primarily calcified arteriosclerotic plaque is visualized.The waveforms are wit hin normal limits. Left Carotid: Bulky primarily calcified arteriosclerotic plaque is visualized. The waveforms are wit hin normal limits. Other: None. CONCLUSION: 1. Right Internal Carotid Artery: Findings indicate <50% stenosis. 2. Left Internal Carotid Artery: Findings indicate <50% stenosis. Electronically signed by: Reji Jerez MD 01/28/2018 3:39 PM EDT
--- NOTE | 2018-01-28 16:57 | MB ---
cc: Lona Lo MD DATE: 01/28/2018 CONSULTING PHYSICIAN: Dr. Lo, Vascular Surgery REASON FOR CONSULTATION: Gangrene of the left foot, ischemia of the left leg, peripheral vascular disease, hypertension. HISTORY OF PRESENT ILLNESS: This 72-year-old male with known past medical and surgical history is a vasculopath; underwent in December of this year, left second toe wound debridement and ray amputation. He was sent home. Now, he comes back with nonhealing wound. Question arises about any vascular implications. PAST MEDICAL HISTORY: That of hypertension, previous gangrene of the toes, hypercholesteremia, ulcer bleed, peripheral vascular disease. PAST SURGICAL HISTORY: That of femoral popliteal [place] [address] Jacobo and I discussed this with him and then some sort of stenting somewhere else I guess last year. MEDICATIONS: Given from the record. SOCIAL HISTORY: The patient smokes about a pack a day and has never stopped; drinks about 2-3 times a week. PHYSICAL EXAMINATION: GENERAL: Reveals 72-year-old male. HEENT: Normocephalic. No trauma to the head. Pupils equal, reactive. Extraocular muscles intact. NECK: Supple. Bilateral carotid pulses and bilateral faint bruits. CHEST: Clear bilateral breath sounds, decreased over both lungs luque consistent with moderate chronic obstructive pulmonary disease. HEART: Regular rhythm. CHEST: Chest wall musculature changes noted with pulmonary cachexia and loss of the chest wall. ABDOMEN: Soft, positive bowel sounds. No rebound, guarding, masses. EXTREMITIES: The patient actually has palpable femoral pulses. The fem-pop graft appears to be occluded. There is no signal in it or I do not get it with a Doppler. There is weak popliteal pulse present and in the posterior tibial. There is no dorsalis pedis on the left. On the right the patient has weak popliteal signal and weak dorsalis pedis and posterior tibial. Feet are cool with decreased capillary refill, but clear and not acutely ischemic. NEUROLOGIC: The patient is grossly intact. IMPRESSION: Patient with previous vascular reconstructions on the left, now with a nonhealing wound. PLAN: We will do CTA with runoff to see how the graft looks like, what we can do about it and if any vascular intervention is warranted or possible to improve the blood flow to the left foot. The patient should have a debridement and resection as per podiatry; probably transmetatarsal amputation, and if this does not heal, and the patient may end up with a below-knee amputation. I have explained this to the patient in detail. Thank you as referral; we will continue to follow the patient with you. MD ZANE King/keara , 02:38 PM , 02:48 PM
--- NOTE | 2018-01-28 18:37 | ECG ---
Date Performed: 01/27/2018 Time Performed: 18:34:17 PTAGE: 72 years EKG: Sinus rhythm WITH FIRST DEGREE AV BLOCK SEPTAL MYOCARDIAL INFARCTION ABNORMAL ECG PREVIOUS TRACING : 12/29/2017 07.49 DOCTOR: Jose M Mason Interpretating Date/Time 01/28/2018 18:34:22
--- NOTE | 2018-01-28 19:21 | P.PNPOD ---
Subjective Interval history: left foot dehiscence of amputation site Review of Systems All other systems reviewed negative except as stated in HPI Physical Exam Vital signs: Vital Signs 01/27/18 21:05 01/27/18 21:40 01/28/18 00:00 Temperature 98.1 F 98.0 F Pulse Rate 60 57 L 58 L Respiratory Rate 18 18 Blood Pressure 125/75 121/65 Pulse Oximetry 99 98 01/28/18 04:00 01/28/18 08:00 01/28/18 09:00 Temperature 97.5 F L 97.5 F L Pulse Rate 51 L 52 L 52 L Respiratory Rate 18 16 Blood Pressure 125/70 124/75 Pulse Oximetry 97 98 01/28/18 11:36 01/28/18 12:00 01/28/18 16:00 Temperature 97.4 F L 97.3 F L Pulse Rate 51 L 51 L Respiratory Rate 16 16 Blood Pressure 119/69 129/74 Pulse Oximetry 98 99 100 Intake & Output 01/28/18 01/28/18 01/29/18 06:59 18:59 06:59 Intake Total 1100 / 1100 1290 / 1290 Output Total 1100 / 1100 Balance 1100 / 1100 190 / 190 Weight 62.1 kg Intake: IV 1100 / 1100 1050 / 1050 NS Inj 1,000 ML @ 100 mls/hr IV 1000 / 1000 1000 / 1000 .CONT .Q10H [facility] Rx#:[id number] Cleocin 900 mg/NS Premix 900 mg 100 / 100 50 / 50 In 50 ml @ 100 mls/hr IV.SIG Q8H [facility] Rx#:[id number] Oral 240 / 240 Output: Urine 1100 / 1100 Other: # Voids 1 Weight On Admission 62.1 kg Narrative: Left foot with dehiscence to proximal aspect of previous amputation site with fibrotic tissue. No purulence and foul odor present. No erythema/edema present. Palpable bone in base of wound. Medications and Allergies Active Medications: Active Medications Acetaminophen (Tylenol) 650 mg PO Q4H PRN PRN Reason: Temp > 100.4 Hydrocodone Bitart/Acetaminophen ([place] 5/325) 1 tab PO Q4H PRN PRN Reason: PAIN 3-5 Al Hydroxide/Mg Hydroxide (Milk Of Magnesia Liq) 30 ml PO Q12H PRN PRN Reason: Mild Constipation Atorvastatin Calcium (Lipitor) 40 mg PO DAILY [facility] Last Admin: 01/28/18 09:00 Dose: 40 mg Bisacodyl (Dulcolax Supp) 10 mg RECTAL DAILY PRN PRN Reason: SEVERE CONSITIPATION Chlorhexidine Gluconate (Chlorhexidine 2% Cloth) 3 pack TOPICAL MACHINE [employer] [facility] Stop: 01/31/18 13:06 Gabapentin (Neurontin) 300 mg PO DAILY [facility] Last Admin: 01/28/18 09:00 Dose: 300 mg Clindamycin/Sodium Chloride (Cleocin 900 Mg/Ns Premix) 900 mg in 50 mls @ 100 mls/hr IV.SIG Q8H [facility] Last Infusion: 01/28/18 12:21 Dose: Infused Sodium Chloride (Ns Inj) 1,000 mls @ 100 mls/hr IV.CONT .Q10H [facility] Last Admin: 01/28/18 18:11 Dose: Not Given Lactated Ringer's (Lr 1000 Ml Inj) 1,000 mls @ 30 mls/hr IV.SIG .Q24H [facility] Stop: 01/31/18 13:14 Last Admin: 01/28/18 18:12 Dose: 30 mls/hr Sodium Chloride (Ns Inj) 500 mls @ 30 mls/hr IV.SIG .Q10H [facility] Stop: 01/31/18 13:59 Lactulose (Lactulose Liq) 30 ml PO DAILY PRN PRN Reason: SEVERE CONSITIPATION Metoprolol Tartrate (Lopressor) 25 mg PO [employer] [facility] Stop: 01/31/18 13:06 Morphine Sulfate (Morphine Inj) 2 mg IV.PUSH Q4H PRN PRN Reason: PAIN 6-10 Last Admin: 01/28/18 14:45 Dose: 2 mg Ondansetron HCl (Zofran Inj) 4 mg IV.PUSH Q6H PRN PRN Reason: NAUSEA OR VOMITING Povidone Iodine (Betadine 5% Antisepsis Kit) 1 applicatio EACH NARE [employer] [facility] Stop: 01/31/18 13:06 Senna/Docusate Sodium (Pau-Colace) 1 tab PO BID [facility] Last Admin: 01/28/18 09:00 Dose: 1 tab Sennosides (Senokot) 17.2 mg PO Q12H PRN PRN Reason: Moderate Constipation Sodium Chloride (Ns Flush) 2 ml IV.FLUSH UNSCH PRN PRN Reason: FLUSH AFTER USING IV ACCESS Sodium Polystyrene Sulfonate (Kayexalate Liq) 15 gm PO ONCE ONE Stop: 01/28/18 18:49 Allergies Allergy/AdvReac Type Severity Reaction Status Date / Time aspirin AdvReac Mild UPSET Verified 12/27/17 16:45 STOMACH Home Medications Medication Instructions Recorded Confirmed Type atorvastatin 40 mg PO DAILY 01/27/18 01/27/18 History gabapentin 300 mg PO DAILY 01/27/18 01/27/18 History meloxicam 15 mg PO DAILY 01/27/18 01/27/18 History Results - Labs CBC & Chem 7: 01/28/18 04:24 01/28/18 04:24 Laboratory Results - last 24 hr 01/28/18 01/28/18 04:24 04:24 WBC 4.2 RBC 3.27 L Hgb 11.5 L Hct 34.0 L MCV 103.9 H MCH 35.3 H MCHC 34.0 RDW 14.2 Plt Count 159 MPV 10.5 Neut % (Auto) 41.3 Lymph % (Auto) 37.8 [place] % (Auto) 14.6 H Eos % (Auto) 5.1 H Baso % (Auto) 1.2 Neut # (Auto) 1.7 L Lymph # (Auto) 1.6 [place] # (Auto) 0.6 Eos # (Auto) 0.2 Baso # (Auto) 0.0 WBC Differential . Differential Comment Auto diff final Sodium 139 Potassium 5.4 H Chloride 108 H Carbon Dioxide 19.9 L Anion Gap 11 BUN 29 H Creatinine 1.36 H Estimated GFR 62 L Random Glucose 84 Calcium 8.1 L Total Bilirubin 0.6 AST 45 H ALT 31 Alkaline Phosphatase 150 H Total Protein 7.9 D Albumin 3.0 L D - Imaging Impressions Foot X-Ray 01/27/18 00:00 CONCLUSION: Osteopenia and postsurgical changes. Carotid Doppler Study 01/28/18 00:00 CONCLUSION: 1. Right Internal Carotid Artery: Findings indicate <50% stenosis. 2. Left Internal Carotid Artery: Findings indicate <50% stenosis. Foot MRI 01/28/18 07:11 CONCLUSION: 1. There is been previous surgeries to the foot with some edema and enhancement along the medial soft tissues overlying the partially resected first metatarsal bone. With a cystic change in the marrow and the edema is difficult to rule out ongoing infection of the bone Assessment and Plan - Assessment (1) Acute osteomyelitis of left ankle or foot Code(s): M86.172 - Other acute osteomyelitis, left ankle and foot Status: Acute (2) Postoperative wound infection Code(s): T81.4XXA - Infection following a procedure, initial encounter Status : Acute - Plan Discussed with patient that the minimum amputation that can be attempted is a proximal transmetatarsal vs lisfranc for limb salvage at this time. Discussed that if this fails, a more proximal amputation would be necessary. Diet ordered for dinner tonight. NPO after midnight tonight. Surgery moved to tomorrow afternoon.
[2018-01-28] MEDS ORDERED: Sodium Polystyrene Sulfonate/Sorbitol Liq 15 GM/60 ML UDC PO ONE (19:45)
--- NOTE | 2018-01-28 23:38 | CT ---
EXAM DATE: 01/28/2018 8:37 PM EDT AGE/SEX: 72 years / Male INDICATIONS: Peripheral vascular disease both legs gangrene left toe CLINICAL DATA: This is the patient's initial encounter. Patient reports that signs and symptoms have been present for 1 day and indicates a pain score of 5/10. MEDICAL/SURGICAL HISTORY: Peripheral vascular disease. Ulcers. None. RADIATION DOSE: 7.54 CTDI (mGy) COMPARISON: No prior exams available for comparison. TECHNIQUE: Volumetric scanning was performed using a multi-row detector CT scanner during bolus infu saroj of 97 ml Omnipaque 350 (iohexol) nonionic water-soluble contrast as a single exam dose. The d sen was post processed with a variety of visualization algorithms including full volume maximum inten sity projection, multi-planar sliding thin slab reformation, curved planar reformation, and surface r endering techniques. Using automated exposure control and adjustment of the mA and/or kV according t o patient size, radiation dose was kept as low as reasonably achievable to obtain optimal diagnostic quality images. DICOM format image data is available electronically for review and comparison. FINDINGS: Inflow: Diffuse arteriosclerotic calcification in the distal abdominal aorta and iliac vessels with o nly mild luminal narrowing. Outflow: Patent bypass graft on the right side from the inguinal region to the popliteal. There is ru noff to the mid calf and at least one vessel. Severe arteriosclerotic calcification in the trifurcati on vessels. On the left side, the femoral artery is patent without significant calcification. There i s two-vessel runoff to the ankle. Extensive vascular calcification in the anterior posterior tibial a rtery disease... CONCLUSION: 1. Patent right femoral/popliteal bypass graft. 2. On the left side, no significant outflow disease down to the popliteal and extensive vascular kvng cification in the narrowed calf vessels. Electronically signed by: Arthur Chavira MD 01/28/2018 11:37 PM EDT
[2018-01-29] MEDS: Clindamycin 900 mg/NS Premix 900 MG/50 ML PIGGYBACK IV.SIG SCH ×3 (03:27→20:16)
[2018-01-29] MEDS: Sod Chloride 0.9% Inj 1,000 ML IV.CONT SCH ×5 (03:28→22:30)
[2018-01-29 06:31] LABS: Hematocrit 34.5 % (39.0-51.0); Hemoglobin 11.7 gm/dL (13.0-17.0); Mean Corpuscular HGB Conc 33.9 % (32.0-36.0); Mean Corpuscular Volume 106.2 fL (80.0-100.0); Mean Platelet Volume 9.5 fL (7.0-11.0); Platelet Count 127 th/mm3 (150-450); Red Blood Count 3.25 mil/mm3 (4.50-5.90); Red Cell Distribution Width 14.3 % (11.6-17.2)
[2018-01-29 06:48] LABS: Calcium 8.3 mg/dL (8.5-10.1); Carbon Dioxide 22.5 meq/L (21.0-32.0); Potassium 4.9 meq/L (3.5-5.1)
[2018-01-29] MEDS: Gabapentin 300 MG Capsule PO SCH (09:03)
[2018-01-29] MEDS: Senna/Docusate Sodium 8.6/50 MG Tablet PO SCH ×2 (09:03→20:18)
--- NOTE | 2018-01-29 13:29 | P.PNIM ---
Subjective Interval history: Pt is sleeping comfortably in bed. Upon awakening, he has no acute complaints. He was scheduled for surgery yesterday evening, but is now scheduled for today. He reports adequate urine output especially given his minimal intake due to be NPO for surgery. He has not had a bowel movement since admission, but reports passing gas. His foot pain is well controlled currently. He denies any fevers, chills, SOB, chest pain, diarrhea, constipation, nausea or vomiting. Physical Exam Vital signs: Vital Signs 01/28/18 16:00 01/28/18 20:00 01/29/18 00:00 Temperature 97.3 F L 98.1 F 97.9 F Pulse Rate 51 L 49 L 52 L Respiratory Rate 16 17 14 Blood Pressure 129/74 150/80 H 142/78 H Pulse Oximetry 100 98 100 01/29/18 04:00 01/29/18 08:00 Temperature 98.2 F 97.3 F L Pulse Rate 53 L 50 L Respiratory Rate 18 16 Blood Pressure 135/77 127/73 Pulse Oximetry 98 99 Intake & Output 01/28/18 01/29/18 01/29/18 18:59 06:59 18:59 Intake Total 1290 / 1290 1100 / 1100 Output Total 1100 / 1100 550 / 550 Balance 190 / 190 550 / 550 Weight 66.1 kg Intake: IV 1050 / 1050 1100 / 1100 NS Inj 1,000 ML @ 100 mls/hr IV 1000 / 1000 1000 / 1000 .CONT .Q10H [facility] Rx#:[id number] Cleocin 900 mg/NS Premix 900 mg 50 / 50 100 / 100 In 50 ml @ 100 mls/hr IV.SIG Q8H [facility] Rx#:[id number] Oral 240 / 240 Output: Urine 1100 / 1100 550 / 550 Other: # Voids 1 - Constitutional no acute distress, average body habitus, cooperative - Routine HEENT Exam Head: Present: normocephalic, atraumatic Eye: Present: EOMI, PERRL. Absent: conjunctival icterus, scleral injection - Routine Neck Exam Present: supple, full ROM, trachea midline. Absent: JVD, lymphadenopathy, thyromegaly, tenderness - Routine Respiratory Exam Present: CTA bilaterally. Absent: accessory muscle use, rales, rhonchi, stridor , wheezes, crackles - Routine Cardiovascular Exam Present: RRR, S1, S2. Absent: murmur, gallop, rubs - Routine Abdominal Exam Present: soft, normoactive bowel sounds. Absent: tenderness, distended, rebound - Routine Extremities Exam Present: pulses intact. Absent: edema Comments: s/p amputation of the L foot 1-3 digits. Site wrapped and bandaged. - Routine Skin Exam Present: intact, dry. Absent: cyanosis, erythema - Routine Neurological Exam Present: alert, oriented X3 Results - Labs CBC & Chem 7: 01/29/18 05:30 01/29/18 05:30 Laboratory Results - last 24 hr 01/29/18 01/29/18 05:30 05:30 WBC 5.0 RBC 3.25 L Hgb 11.7 L Hct 34.5 L MCV 106.2 H MCH 36.0 H MCHC 33.9 RDW 14.3 Plt Count 127 L MPV 9.5 Sodium 139 Potassium 4.9 Chloride 111 H Carbon Dioxide 22.5 Anion Gap 6 BUN 26 H Creatinine 1.41 H Estimated GFR 60 L Random Glucose 87 Calcium 8.3 L - Imaging Impressions Carotid Doppler Study 01/28/18 00:00 CONCLUSION: 1. Right Internal Carotid Artery: Findings indicate <50% stenosis. 2. Left Internal Carotid Artery: Findings indicate <50% stenosis. Aorta w/Runoff CTA 01/28/18 14:40 CONCLUSION: 1. Patent right femoral/popliteal bypass graft. 2. On the left side, no significant outflow disease down to the popliteal and extensive vascular calcification in the narrowed calf vessels. Assessment and Plan - Assessment (1) Acute osteomyelitis of left ankle or foot Code(s): M86.172 - Other acute osteomyelitis, left ankle and foot Status: Acute Plan: -Scheduled for surgical revision of site today, rescheduled from yesterday. -continue IV Cleocin -monitor for clinical signs of systemic infection -NPO for surgery (2) Postoperative wound infection Code(s): T81.4XXA - Infection following a procedure, initial encounter Status : Acute Plan: -continue IV Cleocin -continue to monitor for clinical signs of systemic infection -monitor WBC with routine labs (3) Renal insufficiency Code(s): N28.9 - Disorder of kidney and ureter, unspecified Status: Acute Plan: -continue to monitor renal function and electrolytes -monitor I/Os -avoid nephrotoxic agents - Attending Attestation The exam, history, and the medical decision-making described in the above note were completed with the assistance of the senior medical student Grant GONZALEZ. I reviewed and agree with the findings presented. I attest that I had a face-to- face encounter with the patient on the same day, and personally performed and documented my assessment and findings in the medical record. - Surgical intervention today by Podiatry. Appreciate vascular surgery input. No target lesion for vascular intervention at this point. If he does not heal from the transmetatarsal amputation, he will need below the knee amputation.
[2018-01-29] MEDS ORDERED: Lidocaine 1% Inj 50 ML Vial ONE (14:21)
[2018-01-29] MEDS ORDERED: Bupivacaine PF 0.5% Inj 30 ML Vial ONE (14:21)
--- NOTE | 2018-01-29 15:20 | P.PNVS ---
Subjective Subjective/Hospital Course: 01/28/2018 Patient seen and evaluated full consult dictated We will proceed with surgery as per podiatry and I will evaluate patient as we go along Podiatry surgery at this point takes precedence Thanks Deisy 01/29/2018 The patient actually has palpable femoral pulses. The right fem-pop graft does not appear to be occluded. There is a weak signal with Doppler. There is weak popliteal pulse present and in the posterior tibial. There is no dorsalis pedis on the left. On the right the patient has weak popliteal signal and weak dorsalis pedis and posterior tibial. Feet are cool with decreased capillary refill, but clear and not acutely ischemic. CTA with runoff performed reveals open femoral-popliteal graft into the popliteal artery on the right and then two vessel runoff to the foot as previously stable as per clinical exam. On the left side SFAs patent popliteal is patent and then there is one vessel runoff to the foot which is the only blood supply to the left foot and hence the ischemia. Patient will need transmetatarsal amputation and there is no surgical or endovascular procedure that would make this more likely to heal for there is one vessel flow to the foot and then severe small vessel disease. If the transmetatarsal amputation does not heal patient will need left below- knee amputation Objective Vital Signs / I&O: Vital Signs 01/28/18 16:00 01/28/18 20:00 01/29/18 00:00 Temperature 97.3 F L 98.1 F 97.9 F Pulse Rate 51 L 49 L 52 L Respiratory Rate 16 17 14 Blood Pressure 129/74 150/80 H 142/78 H Pulse Oximetry 100 98 100 01/29/18 04:00 01/29/18 08:00 01/29/18 12:00 Temperature 98.2 F 97.3 F L 98.1 F Pulse Rate 53 L 50 L 53 L Respiratory Rate 18 16 16 Blood Pressure 135/77 127/73 152/83 H Pulse Oximetry 98 99 98 Intake & Output 01/28/18 01/29/18 01/29/18 18:59 06:59 18:59 Intake Total 1290 / 1290 1100 / 1100 Output Total 1100 / 1100 550 / 550 Balance 190 / 190 550 / 550 Weight 66.1 kg Intake: IV 1050 / 1050 1100 / 1100 NS Inj 1,000 ML @ 100 mls/hr IV 1000 / 1000 1000 / 1000 .CONT .Q10H [facility] Rx#:[id number] Cleocin 900 mg/NS Premix 900 mg 50 / 50 100 / 100 In 50 ml @ 100 mls/hr IV.SIG Q8H [facility] Rx#:[id number] Oral 240 / 240 Output: Urine 1100 / 1100 550 / 550 Other: # Voids 1 Laboratory Results - last 24 hr 01/29/18 01/29/18 05:30 05:30 WBC 5.0 RBC 3.25 L Hgb 11.7 L Hct 34.5 L MCV 106.2 H MCH 36.0 H MCHC 33.9 RDW 14.3 Plt Count 127 L MPV 9.5 Sodium 139 Potassium 4.9 Chloride 111 H Carbon Dioxide 22.5 Anion Gap 6 BUN 26 H Creatinine 1.41 H Estimated GFR 60 L Random Glucose 87 Calcium 8.3 L Impressions Foot X-Ray 01/27/18 00:00 CONCLUSION: Osteopenia and postsurgical changes. Chest X-Ray 01/27/18 15:39 CONCLUSION: Negative examination. Carotid Doppler Study 01/28/18 00:00 CONCLUSION: 1. Right Internal Carotid Artery: Findings indicate <50% stenosis. 2. Left Internal Carotid Artery: Findings indicate <50% stenosis. Foot MRI 01/28/18 07:11 CONCLUSION: 1. There is been previous surgeries to the foot with some edema and enhancement along the medial soft tissues overlying the partially resected first metatarsal bone. With a cystic change in the marrow and the edema is difficult to rule out ongoing infection of the bone Aorta w/Runoff CTA 01/28/18 14:40 CONCLUSION: 1. Patent right femoral/popliteal bypass graft. 2. On the left side, no significant outflow disease down to the popliteal and extensive vascular calcification in the narrowed calf vessels.
[2018-01-29] MEDS ORDERED: Lidocaine PF 1% Inj 5 ML Syringe OTHER ONE (17:30)
[2018-01-29] MEDS ORDERED: Phenylephrine/NS 1000 MCG/10ML Syringe IV.PUSH ONE (17:45)
[2018-01-29] MEDS ORDERED: *morphine SULFATE 4 MG/ML PERIprocedure ONLY ONE ×2 (18:54→18:59)
--- NOTE | 2018-01-29 19:28 | P.BOP ---
- Preoperative Diagnosis (1) Acute osteomyelitis of left ankle or foot (2) Postoperative wound infection - Postoperative Diagnosis (1) Acute osteomyelitis of left ankle or foot (2) Postoperative wound infection Date of procedure: 01/29/18 Procedure: 1. transmetatarsal amputation left foot Patient supine with left ankle tourniquet. Timeouts per protocol. Remainder of 1st metatarsal excised, and 2nd-5th metatarsals transected at most proximal aspect, followed by culture, irrigation and primary closure with 2-0 nylon. Dressing with xeroform, 4x4, abd, cast padding, alison to left foot. Disposition: Nonweightbearing left foot Keep clean, dry, intact. Follow up in clinic in 1 week for dressing change. Anesthesia: GETA, local (10mL 0.5% marcaine plain) Surgeon: Lexie Chong DPM Ambulatory Nurse: staff Estimated blood loss (mL): 30 Tourniquet time (min): 5 (250mmHg left ankle) Pathology: other (1. distal forefoot left to pathology. 2. culture left foot) Condition: stable Disposition: PACU
--- NOTE | 2018-01-29 20:46 | MP ---
cc: Lexie Chong DPM DATE OF OPERATION: 01/29/2018 INDICATIONS FOR PROCEDURE: The patient originally presented with osteomyelitis of the second digit, underwent partial second ray amputation, came to the office and had a wound dehiscence with exposed bone to the medial most aspect of his incision and I discussed with him since he only had a few toes left that I would recommend moving forward with a transmetatarsal versus a Lisfranc amputation of the left foot in order to have an adequate soft tissue for coverage. The patient agreed and came into the hospital as an inpatient. He has been undergoing antibiotic treatment and has had a vascular consultation and has agreed to move forward with amputation of the left foot. DESCRIPTION OF PROCEDURE: He was seen in the preoperative holding by myself, nursing staff, and anesthesia, where the correct patient, side, and site were all confirmed to be correct and the left foot. He was then taken to the surgical suite in supine position. The left foot was prepped and draped in normal sterile fashion. Following timeout as per facility protocol, attention was directed to the left foot medially where a fishmouth incision was made to the distal aspect of the foot to encompass the residual forefoot to remove the remaining aspect of the first metatarsal base as well as transecting with the saw, the second, third, fourth and fifth metatarsals at their most proximal aspects. Following transection of the bone, the distal forefoot was removed and sent to pathology as distal forefoot left foot to pathology. Culture was taken of the residual foot, followed by irrigation with normal saline followed by primary closure with 2-0 nylon suture. Dressing consisting of Xeroform, 4 x 4's, ABDs and cast padding with Luis Eduardo bandage was applied to the left foot. The tourniquet was only up for 5 minutes at 250 mmHg to the left ankle. The patient tolerated the procedure and anesthesia well without complication and will be nonweightbearing to the left lower extremity. He will keep the bandage clean, dry and intact and followup in clinic in 1 week for dressing change. SHORT OPERATIVE NOTE SURGEON: Lexie Chong DPM BOAT JOINER: Staff. PREOPERATIVE DIAGNOSIS: Osteomyelitis, left foot with postoperative wound infection. POSTOPERATIVE DIAGNOSIS: Transmetatarsal amputation, left foot. PATHOLOGY: 1. Distal forefoot left foot to pathology. 2. Culture left foot. ANESTHESIA: General endotracheal anesthesia plus local consisting of 10 mL of 0.5% Marcaine plain. ESTIMATED BLOOD LOSS: 30 mL. CONDITION: Stable to PACU. DISPOSITION: Nonweightbearing left foot. Keep dressing clean, dry and intact. Followup in clinic in 1 week. COMPLICATIONS: None. JESSY Stephens/perla , 07:31 PM , 07:37 PM
--- NOTE | 2018-01-29 23:36 | XR ---
EXAM DATE: 01/29/2018 12:00 AM EDT AGE/SEX: 72 years / Male INDICATIONS: Post operative left foot. Amputation of toes. CLINICAL DATA: This is the patient's initial encounter. Patient reports that signs and symptoms have been present for 1 day and indicates a pain score of 0/10. MEDICAL/SURGICAL HISTORY: . Peripheral vascular disease. Ulcers. None. COMPARISON: [facility] – [place], FOOT COMPLETE LEFT 3V, 01/27/2018. . FINDINGS: 3 views left foot. There is evidence of amputation at the level of the metatarsal bases. Diffuse bone demineralization. CONCLUSION: Amputation at the level the metatarsal bases. Electronically signed by: Best Rose MD 01/29/2018 11:34 PM EDT
[2018-01-30] MEDS: Morphine Sulfate Inj 2 MG/ML Vial IV.PUSH PRN (00:28)
[2018-01-30] MEDS: Clindamycin 900 mg/NS Premix 900 MG/50 ML PIGGYBACK IV.SIG SCH ×3 (04:02→20:49)
[2018-01-30] MEDS: Sod Chloride 0.9% Inj 1,000 ML IV.CONT SCH ×3 (04:07→18:00)
--- NOTE | 2018-01-30 08:25 | P.PNIM ---
Subjective Interval history: Pt sitting comfortably off the side of his bed. Overnight, pt states that he rested well with some pain in his L foot, which underwent surgical revision yesterday. Pt is requesting his pain medications be transitioned to oral because he feel they last longer and he does not get a "weird" taste in his mouth. He also inquired about getting a different boot for his foot, because his current one is not working well. Pt reports a good appetite and a moderate amount of urine output. He has not had a bowel movement in several days, and states he is passing gas less, but denies any abdominal pain. Pt denies any current chest pain, SOB, fevers, chills, nausea, vomiting, diarrhea or constipation. Physical Exam Vital signs: Vital Signs 01/29/18 09:00 01/29/18 12:00 01/29/18 18:48 Temperature 98.1 F 98.1 F Pulse Rate 55 L 53 L 75 Respiratory Rate 16 14 Blood Pressure 152/83 H 167/77 H Pulse Oximetry 98 100 01/29/18 19:12 01/29/18 19:15 01/29/18 20:00 Temperature 98.0 F 95.5 F L Pulse Rate 53 L 58 L 75 Respiratory Rate 14 14 18 Blood Pressure 156/87 H 160/84 H 143/65 H Pulse Oximetry 100 99 01/30/18 00:00 01/30/18 04:00 01/30/18 08:00 Temperature 97.7 F 97.7 F 98.7 F Pulse Rate 61 68 71 Respiratory Rate 18 21 18 Blood Pressure 106/62 120/70 133/73 Pulse Oximetry 96 97 99 Intake & Output 01/29/18 01/30/18 01/30/18 18:59 06:59 18:59 Intake Total 1900 / 1900 3150 / 3150 Output Total 100 / 100 Balance 1800 / 1800 3150 / 3150 Weight 66.3 kg Intake: IV 1000 / 1000 3150 / 3150 NS Inj 1,000 ML @ 100 mls/hr IV 1000 / 1000 1999 / 1999 .CONT .Q10H [facility] Rx#:[id number] Cleocin 900 mg/NS Premix 900 mg 150 / 150 In 50 ml @ 100 mls/hr IV.SIG Q8H [facility] Rx#:[id number] LR 1000 mL Inj 1,000 ML @ 30 1000 / 1000 mls/hr IV.SIG .Q24H [facility] Rx#: [id number] Anesthesia Amount 900 / 900 Output: Estimated Blood Loss 100 / 100 - Constitutional no acute distress, thin, cooperative - Routine HEENT Exam Head: Present: normocephalic, atraumatic Eye: Present: EOMI. Absent: conjunctival icterus, scleral injection - Routine Neck Exam Present: supple, trachea midline. Absent: JVD, lymphadenopathy, thyromegaly, tenderness, swelling - Routine Respiratory Exam Present: CTA bilaterally. Absent: accessory muscle use, rales, rhonchi, stridor , wheezes - Routine Cardiovascular Exam Present: RRR, S1, S2. Absent: murmur, gallop, rubs - Routine Abdominal Exam Present: soft, normoactive bowel sounds, distended. Absent: tenderness, rebound Comments: minimally distended compared to previous days - Routine Extremities Exam Present: pulses intact. Absent: cyanosis, clubbing, edema Comments: post-surgical forefoot amputation noted on the L. Bandage is dry and clean. - Routine Skin Exam Present: intact, dry - Routine Neurological Exam Present: alert, oriented X3 Results - Labs CBC & Chem 7: 01/29/18 05:30 01/29/18 05:30 - Imaging Impressions Foot X-Ray 01/29/18 00:00 CONCLUSION: Amputation at the level the metatarsal bases. Assessment and Plan - Assessment (1) Acute osteomyelitis of left ankle or foot Code(s): M86.172 - Other acute osteomyelitis, left ankle and foot Status: Acute Plan: S/p L forefoot amputation. -Continue to monitor site for appropriate wound healing, with wound care -pending pathology reports -continue IV cleocin -continue to monitor for systemic signs of infection or deterioration -work with PT for ambulation -Postop care per podiatry. (2) Postoperative wound infection Code(s): T81.4XXA - Infection following a procedure, initial encounter Status : Acute Plan: s/p L forefoot amputation. Postop care per podiatry. -continue IV Cleocin -monitor surgical site for appropriate healing with wound care (3) Renal insufficiency Code(s): N28.9 - Disorder of kidney and ureter, unspecified Status: Acute Plan: -continue to monitor renal function and electrolyte, labs pending for 01/30 -avoid nephrotoxic agents -monitor I/Os - Plan DVT prophylaxis: SCD - Attending Attestation The exam, history, and the medical decision-making described in the above note were completed with the assistance of the senior medical student Grant MS4. I reviewed and agree with the findings presented. I attest that I had a face-to- face encounter with the patient on the same day, and personally performed and documented my assessment and findings in the medical record. -Status post left forefoot amputation.. Appreciate vascular surgery input. No target lesion for vascular intervention at this point. If he does not heal from the transmetatarsal amputation, he will need below the knee amputation. -Continue wound care per podiatry. Patient is requesting a different boot for comfort and support. Defer to podiatry. -Plan to discharge home when cleared by podiatry.
[2018-01-30] MEDS: Senna/Docusate Sodium 8.6/50 MG Tablet PO SCH ×2 (08:35→20:49)
[2018-01-30] MEDS: Gabapentin 300 MG Capsule PO SCH (08:36)
[2018-01-30] MEDS ORDERED: Sodium Chloride 0.9% 2 ML Flush PRN IV.FLUSH (17:11)
[2018-01-30] MEDS: Sodium Chloride 0.9% 2 ML Flush BID IV.FLUSH SCH (20:50)
--- NOTE | 2018-01-30 23:37 | P.PNPOD ---
Subjective Interval history: s/p transmetatarsal amputation left foot 01/29/18 Dr Chong Physical Exam Vital signs: Vital Signs 01/30/18 00:00 01/30/18 04:00 01/30/18 08:00 Temperature 97.7 F 97.7 F 98.7 F Pulse Rate 61 68 64 Respiratory Rate 18 21 18 Blood Pressure 106/62 120/70 133/73 Pulse Oximetry 96 97 99 01/30/18 08:25 01/30/18 12:00 01/30/18 15:28 Temperature 98.2 F 98.6 F Pulse Rate 74 80 Respiratory Rate 18 17 Blood Pressure 126/69 116/76 Pulse Oximetry 99 95 01/30/18 16:00 01/30/18 20:00 01/30/18 20:24 Temperature 98.7 F 99.6 F Pulse Rate 79 82 Respiratory Rate 18 18 Blood Pressure 113/64 116/71 Pulse Oximetry 97 98 100 Intake & Output 01/30/18 01/30/18 01/31/18 06:59 18:59 06:59 Intake Total 3150 / 3150 1530 / 1530 50 / 50 Output Total 675 / 675 Balance 3150 / 3150 855 / 855 50 / 50 Weight 66.3 kg Intake: IV 3150 / 3150 1050 / 1050 50 / 50 NS Inj 1,000 ML @ 100 mls/hr IV 2000 / 2000 1000 / 1000 .CONT .Q10H [facility] Rx#:[id number] Cleocin 900 mg/NS Premix 900 mg 150 / 150 50 / 50 50 / 50 In 50 ml @ 100 mls/hr IV.SIG Q8H [facility] Rx#:[id number] LR 1000 mL Inj 1,000 ML @ 30 1000 / 1000 mls/hr IV.SIG .Q24H [facility] Rx#: [id number] Oral 480 / 480 Output: Urine 675 / 675 Narrative: dressing left foot clean, dry, intact. Medications and Allergies Active Medications: Active Medications Acetaminophen (Tylenol) 650 mg PO Q4H PRN PRN Reason: Temp > 100.4 Last Admin: 01/30/18 20:50 Dose: 650 mg Hydrocodone Bitart/Acetaminophen ([place] 7.5/325) 1 tab PO Q4H PRN PRN Reason: PAIN SCALE 6 TO 10 Last Admin: 01/30/18 17:23 Dose: 1 tab Al Hydroxide/Mg Hydroxide (Milk Of Magnesia Liq) 30 ml PO Q12H PRN PRN Reason: Mild Constipation Atorvastatin Calcium (Lipitor) 40 mg PO DAILY [facility] Last Admin: 01/30/18 08:36 Dose: 40 mg Bisacodyl (Dulcolax Supp) 10 mg RECTAL DAILY PRN PRN Reason: SEVERE CONSITIPATION Chlorhexidine Gluconate (Chlorhexidine 2% Cloth) 3 pack TOPICAL HAZMAT CDL DRIVER [facility] Stop: 01/31/18 13:06 Gabapentin (Neurontin) 300 mg PO DAILY [facility] Last Admin: 01/30/18 08:36 Dose: 300 mg Clindamycin/Sodium Chloride (Cleocin 900 Mg/Ns Premix) 900 mg in 50 mls @ 100 mls/hr IV.SIG Q8H [facility] Last Infusion: 01/30/18 21:37 Dose: Infused Sodium Chloride (Ns Inj) 1,000 mls @ 100 mls/hr IV.CONT .Q10H [facility] Last Admin: 01/30/18 18:00 Dose: 100 mls/hr Sodium Chloride (Ns Inj) 500 mls @ 30 mls/hr IV.SIG .Q10H [facility] Stop: 01/31/18 13:59 Lactulose (Lactulose Liq) 30 ml PO DAILY PRN PRN Reason: SEVERE CONSITIPATION Metoprolol Tartrate (Lopressor) 25 mg PO HAZMAT CDL DRIVER [facility] Stop: 01/31/18 13:06 Morphine Sulfate (Morphine Inj) 2 mg IV.PUSH Q4H PRN PRN Reason: BREAKTHROUGH PAIN Last Admin: 01/30/18 00:28 Dose: 2 mg Ondansetron HCl (Zofran Inj) 4 mg IV.PUSH Q6H PRN PRN Reason: NAUSEA OR VOMITING Povidone Iodine (Betadine 5% Antisepsis Kit) 1 applicatio EACH NARE HAZMAT CDL DRIVER [facility] Stop: 01/31/18 13:06 Senna/Docusate Sodium (Pau-Colace) 1 tab PO BID [facility] Last Admin: 01/30/18 20:49 Dose: 1 tab Sennosides (Senokot) 17.2 mg PO Q12H PRN PRN Reason: Moderate Constipation Sodium Chloride (Ns Flush) 2 ml IV.FLUSH BID [facility] Last Admin: 01/30/18 20:50 Dose: 2 ml Sodium Chloride (Ns Flush) 2 ml IV.FLUSH PRN PRN PRN Reason: FLUSH AFTER USING IV ACCESS Allergies Allergy/AdvReac Type Severity Reaction Status Date / Time aspirin AdvReac Mild UPSET Verified 12/27/17 16:45 STOMACH Home Medications Medication Instructions Recorded Confirmed Type atorvastatin 40 mg PO DAILY 01/27/18 01/27/18 History gabapentin 300 mg PO DAILY 01/27/18 01/27/18 History meloxicam 15 mg PO DAILY 01/27/18 01/27/18 History Results - Labs CBC & Chem 7: 01/29/18 05:30 01/29/18 05:30 Microbiology 01/29/18 18:09 Wound - Foot Gram Stain - Final 01/29/18 18:09 Wound - Foot Wound Culture - Preliminary No growth in 24 hours 01/29/18 18:09 Wound - Foot Fungal Smear - Final No fungal elements seen - Imaging Impressions Foot X-Ray 01/29/18 00:00 CONCLUSION: Amputation at the level the metatarsal bases. Assessment and Plan - Assessment (1) Acute osteomyelitis of left ankle or foot Code(s): M86.172 - Other acute osteomyelitis, left ankle and foot Status: Acute (2) Postoperative wound infection Code(s): T81.4XXA - Infection following a procedure, initial encounter Status : Acute - Plan Nonweightbearing left foot. Clear for discharge per podiatry and follow up in 1 week for dressing change Rehab placement would be helpful with patient compliance and healing.
[2018-01-31] MEDS: Clindamycin 900 mg/NS Premix 900 MG/50 ML PIGGYBACK IV.SIG SCH ×2 (03:21→12:16)
[2018-01-31] MEDS: Sod Chloride 0.9% Inj 1,000 ML IV.CONT SCH ×2 (03:24→14:00)
[2018-01-31] MEDS: Senna/Docusate Sodium 8.6/50 MG Tablet PO SCH (08:53)
[2018-01-31] MEDS: Gabapentin 300 MG Capsule PO SCH (08:53)
[2018-01-31] MEDS: Sodium Chloride 0.9% 2 ML Flush BID IV.FLUSH SCH (08:56)
[2018-01-31 09:45] VITALS: RESP 20
--- NOTE | 2018-01-31 13:25 | P.DS ---
Date of admission: 01/27/18 19:25 Primary care physician: PROVIDER NON STAFF Brief History from admission: HPI from the admitting physician: This is a 72-year-old male with a PMH of HTN, Hyperlipidemia, PVD and Left Foot Toe Amputation who was sent to the ER by Dr. Chong for admission to undergo surgical intervention in am. Previous admit 12/27-12/30/17 for left second toe wound w/ Osteomyelitis, s/p eval by Dr. Chong and underwent Partial 2nd Ray Amputation on 12/29/17, was d/c'd home on Augmentin po bid x14 days, states he completed antibiotics as prescribed. Was seen by Dr. Chong in the office on 01/23/18 and given Rx to present to the ER on 01/27/18 for admission and surgical intervention in am for non-healing wound. Denies fever or chills. On arrival, BP 127/68, HR 91, O2 sat 98% on RA, Afebrile. CBC essentially unremarkable. INR 1.0. Creatinine 1.75, previously 1.57 on 12/30/2017. Troponin negative. Patient update on day of discharge: Patient reports he is feeling okay today. Pain is controlled. Cleared by podiatry for discharge to follow-up outpatient. DS: Diagnosis - Discharge Diagnosis (1) Acute osteomyelitis of left ankle or foot Status: Acute (2) Postoperative wound infection Status: Acute (3) Renal insufficiency Status: Acute DS: Medications - Discharge Medications Prescriptions: clindamycin HCl [Cleocin HCl] 300 mg PO TID #21 cap hydrocodone-acetaminophen 1 tab PO Q4H PRN #12 tab PRN Reason: Pain Scale 6 To 10 DS: Summary Hospital Course: 72-year-old male admitted and treated for the following: (1) Acute osteomyelitis of left ankle or foot Code(s): M86.172 - Other acute osteomyelitis, left ankle and foot Status: Acute Plan: Patient followed by podiatry. He underwent L forefoot amputation. He was treated with systemic clindamycin. -The patient is discharged home to follow-up outpatient with podiatry. (2) Postoperative wound infection Code(s): T81.4XXA - Infection following a procedure, initial encounter Status : Acute Plan: He underwent revision of the wound, s/p L forefoot amputation. Postop care per podiatry. (3) Renal insufficiency Code(s): N28.9 - Disorder of kidney and ureter, unspecified Status: Acute Plan: -Renal functions returned to baseline. - Time Spent with Patient Total time spent providing and/or coordinating discharge services: Less than 30 minutes - Quality: VTE Deep Vein Thrombosis/Pulmonary Embolism Present on Admission: No Exam Vital signs: Vital Signs 01/30/18 15:28 01/30/18 16:00 01/30/18 20:00 Temperature 98.6 F 98.7 F Pulse Rate 80 79 81 Respiratory Rate 17 18 Blood Pressure 116/76 113/64 Pulse Oximetry 97 98 01/30/18 20:24 01/31/18 00:00 01/31/18 04:00 Temperature 99.6 F 99.5 F Pulse Rate 82 68 78 Respiratory Rate 18 18 Blood Pressure 116/71 146/83 H Pulse Oximetry 100 99 01/31/18 08:00 01/31/18 10:53 Temperature 99.0 F Pulse Rate 66 Respiratory Rate 20 Blood Pressure 138/71 Pulse Oximetry 95 95 Intake & Output 01/30/18 01/31/18 01/31/18 18:59 06:59 18:59 Intake Total 1530 / 1530 1480 / 1480 Output Total 675 / 675 1800 / 1800 Balance 855 / 855 -320 / -320 Intake: IV 1050 / 1050 1100 / 1100 NS Inj 1,000 ML @ 100 mls/hr IV 1000 / 1000 1000 / 1000 .CONT .Q10H [facility] Rx#:[id number] Cleocin 900 mg/NS Premix 900 mg 50 / 50 100 / 100 In 50 ml @ 100 mls/hr IV.SIG Q8H [facility] Rx#:[id number] Oral 480 / 480 380 / 380 Output: Urine 675 / 675 1800 / 1800 Narrative: GENERAL: This is a well-nourished, well-developed patient, in no apparent distress. CARDIOVASCULAR: Normal rate and regular rhythm without murmurs, gallops, or rubs. RESPIRATORY: Good respiratory efforts. Breath sounds equal and clear to auscultation bilaterally. GASTROINTESTINAL: Abdomen soft, non-tender, non-distended. Normal active bowel sounds MUSCULOSKELETAL: Left foot postop dressing and wrap appear intact Results Procedures completed during hospitalization: Left forefoot amputation Pending studies at discharge: Pending at discharge 01/29/18 08:40 Surgical [PTH] Routine Labs on day of discharge: Preliminary micro results at discharge 01/29/18 18:09 Wound Culture - Preliminary Wound - Foot Light growth normal skin eusebio No anaerobes isolated - Impressions ITS Impressions Chest X-Ray 01/27/18 15:39 CONCLUSION: Negative examination. Carotid Doppler Study 01/28/18 00:00 CONCLUSION: 1. Right Internal Carotid Artery: Findings indicate <50% stenosis. 2. Left Internal Carotid Artery: Findings indicate <50% stenosis. Foot MRI 01/28/18 07:11 CONCLUSION: 1. There is been previous surgeries to the foot with some edema and enhancement along the medial soft tissues overlying the partially resected first metatarsal bone. With a cystic change in the marrow and the edema is difficult to rule out ongoing infection of the bone Aorta w/Runoff CTA 01/28/18 14:40 CONCLUSION: 1. Patent right femoral/popliteal bypass graft. 2. On the left side, no significant outflow disease down to the popliteal and extensive vascular calcification in the narrowed calf vessels. Foot X-Ray 01/29/18 00:00 CONCLUSION: Amputation at the level the metatarsal bases. Discharge Plan - Discharge Disposition Patient Disposition: 01 Discharge Home - Discharge Condition Condition: Good - Discharge Order Discharge Orders: Discharge Order (Routine); Ordered 01/31/18 Ordered By: Noelle Dominique - Physicians Team Primary Care Provider: NON STAFF,PROVIDER Attending Provider: Noelle Dominique Other Providers: Lexie Chong DPM ; Lona Lo MD ; CristiHumana
--- NOTE | 2018-01-31 14:08 | P.PNPOD ---
Subjective Interval history: s/p Left foot TMA with on 01/29. Pt states pain is controlled with [place]. He denies any n/v/f/h/c/sob. Physical Exam Vital signs: Vital Signs 01/30/18 15:28 01/30/18 16:00 01/30/18 20:00 Temperature 98.6 F 98.7 F Pulse Rate 80 79 81 Respiratory Rate 17 18 Blood Pressure 116/76 113/64 Pulse Oximetry 97 98 01/30/18 20:24 01/31/18 00:00 01/31/18 04:00 Temperature 99.6 F 99.5 F Pulse Rate 82 68 78 Respiratory Rate 18 18 Blood Pressure 116/71 146/83 H Pulse Oximetry 100 99 01/31/18 08:00 01/31/18 10:53 Temperature 99.0 F Pulse Rate 66 Respiratory Rate 20 Blood Pressure 138/71 Pulse Oximetry 95 95 Intake & Output 01/30/18 01/31/18 01/31/18 18:59 06:59 18:59 Intake Total 1530 / 1530 1480 / 1480 Output Total 675 / 675 1800 / 1800 Balance 855 / 855 -320 / -320 Intake: IV 1050 / 1050 1100 / 1100 NS Inj 1,000 ML @ 100 mls/hr IV 1000 / 1000 1000 / 1000 .CONT .Q10H [facility] Rx#:[id number] Cleocin 900 mg/NS Premix 900 mg 50 / 50 100 / 100 In 50 ml @ 100 mls/hr IV.SIG Q8H [facility] Rx#:[id number] Oral 480 / 480 380 / 380 Output: Urine 675 / 675 1800 / 1800 Narrative: Left foot incision site is well coapted with all sutures intact. No erythema, no drainage. Medications and Allergies Active Medications: Active Medications Acetaminophen (Tylenol) 650 mg PO Q4H PRN PRN Reason: Temp > 100.4 Last Admin: 01/30/18 20:50 Dose: 650 mg Hydrocodone Bitart/Acetaminophen ([place] 7.5/325) 1 tab PO Q4H PRN PRN Reason: PAIN SCALE 6 TO 10 Last Admin: 01/31/18 08:53 Dose: 1 tab Al Hydroxide/Mg Hydroxide (Milk Of Magnesia Liq) 30 ml PO Q12H PRN PRN Reason: Mild Constipation Atorvastatin Calcium (Lipitor) 40 mg PO DAILY [facility] Last Admin: 01/31/18 08:53 Dose: 40 mg Bisacodyl (Dulcolax Supp) 10 mg RECTAL DAILY PRN PRN Reason: SEVERE CONSITIPATION Gabapentin (Neurontin) 300 mg PO DAILY [facility] Last Admin: 01/31/18 08:53 Dose: 300 mg Clindamycin/Sodium Chloride (Cleocin 900 Mg/Ns Premix) 900 mg in 50 mls @ 100 mls/hr IV.SIG Q8H [facility] Last Admin: 01/31/18 12:16 Dose: 100 mls/hr Sodium Chloride (Ns Inj) 1,000 mls @ 100 mls/hr IV.CONT .Q10H [facility] Last Admin: 01/31/18 03:24 Dose: 100 mls/hr Lactulose (Lactulose Liq) 30 ml PO DAILY PRN PRN Reason: SEVERE CONSITIPATION Morphine Sulfate (Morphine Inj) 2 mg IV.PUSH Q4H PRN PRN Reason: BREAKTHROUGH PAIN Last Admin: 01/30/18 00:28 Dose: 2 mg Ondansetron HCl (Zofran Inj) 4 mg IV.PUSH Q6H PRN PRN Reason: NAUSEA OR VOMITING Senna/Docusate Sodium (Pau-Colace) 1 tab PO BID [facility] Last Admin: 01/31/18 08:53 Dose: 1 tab Sennosides (Senokot) 17.2 mg PO Q12H PRN PRN Reason: Moderate Constipation Sodium Chloride (Ns Flush) 2 ml IV.FLUSH BID [facility] Last Admin: 01/31/18 08:56 Dose: 2 ml Sodium Chloride (Ns Flush) 2 ml IV.FLUSH PRN PRN PRN Reason: FLUSH AFTER USING IV ACCESS Allergies Allergy/AdvReac Type Severity Reaction Status Date / Time aspirin AdvReac Mild UPSET Verified 12/27/17 16:45 STOMACH Home Medications Medication Instructions Recorded Confirmed Type atorvastatin 40 mg PO DAILY 01/27/18 01/27/18 History gabapentin 300 mg PO DAILY 01/27/18 01/27/18 History meloxicam 15 mg PO DAILY 01/27/18 01/27/18 History Results - Labs CBC & Chem 7: 01/29/18 05:30 01/29/18 05:30 Microbiology 01/29/18 18:09 Wound - Foot Gram Stain - Final 01/29/18 18:09 Wound - Foot Wound Culture - Preliminary Light growth normal skin eusebio No anaerobes isolated Assessment and Plan - Assessment (1) Acute osteomyelitis of left ankle or foot Code(s): M86.172 - Other acute osteomyelitis, left ankle and foot Status: Acute (2) Postoperative wound infection Code(s): T81.4XXA - Infection following a procedure, initial encounter Status : Acute - Plan - s/p left foot TMA with , f/u 1 week post op - dressings to be changed in office with - WBing should be minimal heel WBing only - ok to d/c from podiatry standpoint
[2018-01-31 14:11] VITALS: BP 129/72; TEMP 98.4; O2SAT 96
[2018-01-31 20:11] VITALS: PULSE 79
== END 2018-01-31 16:57 | disposition home or self-care (01) ==
LOC: NEPE 11:19 → NEDA 19:25 → N04 21:00
PROVIDERS: ADMIT Family Medicine; ATTEND Family Medicine